=== PATIENT | female | born 1945 | race Caucasian/White ===

== ENCOUNTER 2017-10-03 15:30 | Emergency (ER) | payer MEDICARE, MEDICAID, SELFPAY ==
[2017-10-03] VITALS (12 sets, daily range): BP systolic 151–169; BP diastolic 86–104; PULSE 59–76; RESP 16–29; TEMP 36.5; O2SAT 94–100
--- NOTE | 2017-10-03 15:44 | DI.REPORT_ITS ---
SYMPTOM/DIAGNOSIS: EPIGASTRIC PAIN, SYNCOPAL EPISODES, R/O ACUTE DISEASE PA AND LATERAL CHEST: Comparison is made with 28 Jan 2017. The heart size is normal. The lungs are clear. No infiltrate, effusion or pulmonary edema is seen. IMPRESSION: Negative chest x-ray.
--- NOTE | 2017-10-03 16:14 | ED.GENADUL ---
Disposition Clinical Impression: UTI (urinary tract infection), Vaginal atrophy Disposition: HOME Condition: Stable Instructions: Estradiol (Vaginal), Urinary Tract Infection in Women (ED) Additional Instructions: Take the antibiotics until finished. Use the estrogen cream as directed. Call your primary care doctor on Friday morning to schedule follow-up appointment for reevaluation of your chronic urinary tract infections and vaginal atrophy and for further direction on whether or not to continue the estrogen cream as that can have side effects. You should receive a call from care management regarding follow-up with urology regarding your chronic urinary tract infections. Prescriptions: Estradiol [Estrace] 1 gm VG DAILY 14 Days #1 tube Nitrofurantoin Monohyd/M-Cryst [Macrobid] 100 mg PO BID 5 Days cap Medical Decision Making - Lab Data Laboratory Tests 10/03/17 10/03/17 10/03/17 16:00 16:00 16:00 WBC 9.87 RBC 4.90 Hgb 13.9 Hct 42.6 MCV 86.9 MCH 28.4 MCHC 32.6 RDW 16.0 H Plt Count 243 MPV 10.4 Immature Gran % 0.2 Neutrophils % 66.9 Lymphocytes % 24.8 Monocytes % 5.9 Eosinophils % 2.0 Basophils % 0.2 Absolute Neutrophils 6.60 Absolute Lymphocytes 2.45 Absolute Monocytes 0.58 Absolute Eosinophils 0.20 Absolute Basophils 0.02 Sodium 139 Potassium 3.8 Chloride 101 Carbon Dioxide 28.8 Anion Gap 9.2 BUN 9 Creatinine 0.71 Estimated GFR/1.73 m2 >= 60.00 Glucose 87 Calcium 9.2 Magnesium 1.8 Total Bilirubin 0.3 0.3 Conjugated Bilirubin 0.10 AST 15 15 ALT 18 18 Alkaline Phosphatase 87 89 Troponin I < 0.02 Total Protein 7.3 7.4 Albumin 3.8 3.8 Lipase 121 Urine Color Urine Clarity Urine pH Ur Specific [place] Urine Protein Urine Ketones Urine Blood Urine Nitrite Urine Bilirubin Urine Urobilinogen Ur Leukocyte Esterase Urine RBC Urine WBC Ur Epithelial Cells Urine Crystals Urine Bacteria Urine Casts Urine Mucus Urine Other Ur Culture Indicated? Urine Glucose 10/03/17 16:00 WBC RBC Hgb Hct MCV MCH MCHC RDW Plt Count MPV Immature Gran % Neutrophils % Lymphocytes % Monocytes % Eosinophils % Basophils % Absolute Neutrophils Absolute Lymphocytes Absolute Monocytes Absolute Eosinophils Absolute Basophils Sodium Potassium Chloride Carbon Dioxide Anion Gap BUN Creatinine Estimated GFR/1.73 m2 Glucose Calcium Magnesium Total Bilirubin Conjugated Bilirubin AST ALT Alkaline Phosphatase Troponin I Total Protein Albumin Lipase Urine Color Yellow Urine Clarity Sl cloudy Urine pH 7.0 Ur Specific [place] 1.015 Urine Protein Negative Urine Ketones Negative Urine Blood Moderate H Urine Nitrite Negative Urine Bilirubin Negative Urine Urobilinogen 0.2 Ur Leukocyte Esterase Trace H Urine RBC >50 H Urine WBC 20-50 Ur Epithelial Cells Few Urine Crystals Negative Urine Bacteria Rare Urine Casts Negative Urine Mucus Negative Urine Other Rare renal Ur Culture Indicated? Yes Urine Glucose Negative - EKG Data -: EKG Interpreted by Me 10/03/17 1546: [address]. No acute ST elevation or depression. - Radiology Data Radiology results: report reviewed, image reviewed Chest x-ray: Negative - Medical Decision Making 1540 -- 71-year-old female with a history of chronic urinary tract infections, GERD, and hysterectomy who presents for urinary symptoms for 3 days and feeling weak at PCP office today. Patient has dysuria, frequency and hematuria. She denies fever, vomiting or back pain. She was at [facility] for her urinary symptoms today and felt weak while walking to the bathroom. She states she has not eaten anything today. There was no syncopal episode, headache, dizziness, chest pain, shortness of breath or palpitations at the time of feeling weak. EMS notes that patient had a temp of 104 in one ear and 97 and another ear and EMS states they think their thermometer is not accurate and she does not have a fever. Temp on arrival 97.7. Patient appears nontoxic. She is complaining of lower abdominal pain and she has to urinate. She also complained of mild epigastric pain and was mildly tender in her epigastric region and lower abdomen which may be due to not eating. No CVA tenderness. No focal deficits. Due to complaints of near syncope and epigastric pain, will place an IV, pepcid, bolus IVF, cardiac workup, EKG, chest x-ray and urinalysis. 1630 -- ua and imaging reviewed. Urinalysis notes significant UTI. Dose of rocephin ordered. Urine culture sent. Chest x-ray negative. Pt is requesting food as she has not eaten all day. Will order tray of food. EKG noted rate of 60, sinus and no acute ST findings. 1700 --labs reviewed and unremarkable. Pt states she feels much better after eating. She appears nontoxic and pleasant and much more comfortable compared to arrival. Pt is requesting to go home. Pt had also admitted to area just inside vagina burning and itching at times. Area was examined and noted minimal erythema and tenderness with thinning of skin but no discharge, lesions or bleeding. Pt states she has had this for months. It's possible that her urine is causing local irritation contributing to dysuria feeling in addition to UTI. I d/w pt that her symptoms/signs can be due to vaginal atrophy from post-menopausal state. We discussed the possibilities of treatment and their risks. Pt would like a prescription for vaginal cream. Will send home with estrace vaginal cream. Pt also has recently been treated for UTI with keflex in June 2017 and cipro in July 2017. Will send home with script for macrobid. Pt was instructed on the importance of f/u with her pcp for reevaluation, urine culture results, and further discussion about possible vaginal atrophy and whether to continue estrace cream. Pt was instructed to return immediately with any concerns. Will also place pt on care management list for follow up with urology for evaluation for chronic UTIs. History of Present Illness - General Chief complaint: GenMedical Stated complaint: CALEX Time Seen by Provider: 10/03/17 15:35 Source: patient Mode of arrival: EMS Limitations: no limitations - History of Present Illness Initial comments: Patient is a 71-year-old female with a history of chronic urinary tract infections, hypertension, hyperlipidemia and hysterectomy who presents to the ED with a complaint of urinary symptoms for 3 days and feeling weak at the PCP office today. Patient admits to dysuria, frequency and hematuria. Patient has history of chronic urinary tract infections. Patient was at [facility] today for her urinary symptoms and was walking to the bathroom and felt weak. She denies any syncopal episode, headache, dizziness, chest pain, shortness of breath, palpitations, nausea, or vomiting at that time. - Related Data Albuterol [Proventil Hfa] 2 puff IH PRN 11/14/13 Aspirin [Aspir 81] 81 mg PO DAILY 11/14/13 Losartan/Hydrochlorothiazide [Losartan-Hctz 100-25 mg Tab] 1 tab PO DAILY 11/14/13 Lovastatin 20 mg PO DAILY 11/14/13 Venlafaxine [Effexor] 75 mg PO DAILY 09/28/14 Melatonin 3 mg PO HS 05/20/16 Omeprazole 20 mg PO DAILY tab-cap 05/20/16 Beclomethasone Dipropionate [Qvar 40Mcg] 2 puff IH BID 01/28/17 Prednisone 10 mg PO DIRECTED #14 tablet 01/30/17 Cephalexin [Keflex] 500 mg PO BID #13 cap 07/12/17 Phenazopyridine HCl [Pyridium] 100 mg PO Q8H #4 tablet 07/12/17 Estradiol [Estrace] 1 gm VG DAILY 14 Days #1 tube 10/03/17 Nitrofurantoin Monohyd/M-Cryst [Macrobid] 100 mg PO BID 5 Days cap 10/03/17 Allergies Allergy/AdvReac Type Severity Reaction Status Date / Time Iodinated Contrast- Oral and Allergy Itching Unverified 07/12/17 13:03 IV Dye aspirin AdvReac Nausea Unverified 07/12/17 13:03 nicotine [From Nicoderm CQ] AdvReac Itching Unverified 07/12/17 13:03 Review of Systems Constitutional: denies: chills, fever Eyes: denies: eye pain ENT: denies: ear pain, dental pain Respiratory: denies: cough, shortness of breath Cardiovascular: denies: chest pain, dyspnea on exertion Gastrointestinal: denies: abdominal pain, nausea, vomiting Genitourinary: frequency, hematuria. denies: dysuria Musculoskeletal: denies: back pain Skin: denies: rash, lesions Neurological: denies: headache, weakness, numbness Past Medical History - Past Medical History Medical history: COPD, GERD, hyperlipidemia, hypertension Surgical history: appendectomy, cholecystectomy, hysterectomy, other (Cataract surgery) Family history: CAD/WA, cancer, hypertension - Social History Smoking status: current everyday smoker Alcohol use: none Drug use: none General Exam - General Limitations: no limitations General appearance: alert, in no apparent distress - Eye Eye exam: Present: EOMI - ENT ENT exam: Present: normal orophraynx - Neck Neck exam: Present: normal inspection - Respiratory Respiratory exam: Present: normal lung sounds bilaterally, chest wall tenderness - Cardiovascular Cardiovascular Exam: Present: regular rate, normal rhythm. Absent: bradycardia, tachycardia - GI/Abdominal GI/Abdominal exam: Present: soft, normal bowel sounds. Absent: distended, tenderness, guarding, rebound, rigid - Back Exam Back exam: Absent: CVA tenderness (R), CVA tenderness (L) - Neurological Exam Neurological exam: Present: alert, oriented X3 - Psychiatric Psychiatric exam: Present: normal affect - Skin Skin exam: Present: warm, dry, intact. Absent: rash Course Vital Signs - 24 hr 10/03/17 15:40 Temperature 97.7 F Pulse 64 Respiratory 22 Rate Blood Pressure 153/104 Pulse Oximetry 97
[2017-10-03 16:16] LABS: Bilirubin Negative (Negative); Blood Moderate (Negative); Clarity Sl Cloudy; Glucose Negative (Negative); Ketones Negative (Negative); Leukocyte Esterase Trace (Negative); Nitrite Negative (Negative); Specific Gravity 1.015 (1.005-1.025); Urobilinogen 0.2 EU/dL (Up TO 0.2)
[2017-10-03 16:22] LABS: Abs Immature Grans 0.02 k/cumm (0.0-0.09); Absolute Basophil Count 0.02 k/cumm (0.0-0.2); Absolute Lymphocyte Count 2.45 k/cumm (1.2-3.4); Absolute Monocyte Count 0.58 k/cumm (0.11-0.7); Basophils % 0.2; HCT 42.6 % (36.0-46.0); HGB 13.9 g/dL (12.0-15.5); Immature Grans % 0.2; Lymphocytes % 24.8; Mean Corp. HGB Concentration 32.6 g/dL (32.0-36.0); Mean Corpuscular Hemoglobin 28.4 pg (27.0-33.0); Mean Corpuscular Volume 86.9 fL (80-95); Mean Platelet Volume 10.4 fL (8.0-11.0); Monocytes % 5.9; Neutrophils % 66.9; Platelet Count 243 x1000/uL (130-400); White Blood Cell Count 9.87 k/cumm (4.4-10.8)
[2017-10-03 16:26] LABS: Bacteria Rare HPF (Negative); C & S Indicated? Yes; Casts Negative LPF (Negative); Crystals Negative HPF (Negative); Epithelial Cells Few HPF (Negative); Mucus Negative (Negative); Other Cells Rare Renal (Negative); RBC >50 (0-2); WBC 20-50 HPF (0-5)
[2017-10-03 16:37] LABS: ALT 18 U/L (12-78); AST 15 U/L (15-37); Albumin 3.8 g/dL (3.4-5.0); Alkaline Phosphatase 89 U/L (46-116); Bilirubin, Total 0.3 mg/dL (0.2-1.0); Lipase 121 U/L (73-393); Total Protein 7.4 g/dL (6.4-8.2)
[2017-10-03 16:39] LABS: ALT 18 U/L (12-78); AST 15 U/L (15-37); Albumin 3.8 g/dL (3.4-5.0); Alkaline Phosphatase 87 U/L (46-116); Anion Gap 9.2 mmol/L (3-11); BUN 9 mg/dL (7-18); Bilirubin, Total 0.3 mg/dL (0.2-1.0); CO2 28.8 mmol/L (21.0-32.0); CREATININE 0.71 mg/dL (0.55-1.02); Calcium 9.2 mg/dL (8.5-10.1); Chloride 101 mmol/L (98-107); Glucose 87 mg/dL (70-100); Magnesium 1.8 mg/dL (1.8-2.4); Potassium 3.8 mmol/L (3.5-5.1); Sodium 139 mmol/L (136-145); Total Protein 7.3 g/dL (6.4-8.2)
--- NOTE | 2017-10-03 16:42 | DI.VRAD_ITS ---
EXAM: XR Chest, 2 Views CLINICAL HISTORY: 71 years old, female; Signs and symptoms; Shortness of breath TECHNIQUE: Frontal and lateral views of the chest. COMPARISON: CR - CHEST 2 VIEWS PA,LAT 2017-01-28 11:12 FINDINGS: Lungs: COPD. No pulmonary consolidation. Pleural space: Unremarkable. No pneumothorax. Heart: Unremarkable. No cardiomegaly. Mediastinum: Unremarkable. Bones/joints: Degenerative spondylosis of the thoracic spine. Upper abdomen: Status post cholecystectomy. IMPRESSION: No acute findings. Dictated and Authenticated by: Isaiah Prabhakar MD. Ordering:ANGELO RAMOS MD
[2017-10-03 16:51] LABS: Troponin I < 0.02 ng/mL (0.00-0.06)
[2017-10-03] MEDS: Normal Saline 250 ML IV (16:53)
[2017-10-03] MEDS: FAMOTIDINE 20 MG/50 ML BAG 100 MG IVPB (16:54)
[2017-10-03] MEDS: MacroBID 100 MG CAP 200 MG PO (17:45)
--- NOTE | 2017-10-06 08:04 | PDOC.ERCMPRO ---
Care Management Progress Note 10/06-Dr. Bass requested assistance with an urology f/u within 1-2 weeks for chronic UTI. Referral faxed to urology this am.
== END 2017-10-03 17:58 | disposition home or self-care (01) ==
PROVIDERS: Emergency Provider Physician Assistant
DX: N39.0 Urinary tract infection, site not specified (principal); B96.89 Other specified bacterial agents as the cause of diseases classified elsewhere; N95.2 Postmenopausal atrophic vaginitis; R55 Syncope and collapse; I10 Essential (primary) hypertension; J44.9 Chronic obstructive pulmonary disease, unspecified; F17.210 Nicotine dependence, cigarettes, uncomplicated
CPT/HCPCS: 71046; 93005; 96361; 96365; 96368; 99285 ×2; J0696; 80053; 80076; 83690; 81003; 81015; 83735; 84484; 85025; 87086; 93010

== ENCOUNTER 2017-12-31 01:10 | Outpatient (CLI) | payer MEDICARE, MEDICAID, SELFPAY ==
--- NOTE | 2017-12-31 14:08 | DI.RAD_ITS ---
SYMPTOMS/DIAGNOSIS: RT WRIST PAIN, M25.531 RIGHT WRIST: Three views were obtained. The carpal alignment appears within normal limits. There are mild degenerative changes of the joints of the carpus, most prominent at the greater multangular first metacarpal joint. No other significant bony abnormality is seen.
== END 2017-12-31 01:30 ==
PROVIDERS: PCP Family Medicine; Visit Provider Family Medicine
DX: M25.531 Pain in right wrist (principal); M19.031 Primary osteoarthritis, right wrist
CPT/HCPCS: 73110

== ENCOUNTER 2018-05-12 13:34 | Emergency (ER) | payer MEDICARE, MEDICAID, SELFPAY ==
[2018-05-12 13:40] VITALS: BP 191/91; PULSE 65; RESP 20; TEMP 36.8; O2SAT 98
--- NOTE | 2018-05-12 13:59 | ED.GENADUL_ITS ---
Discharge Plan Disposition Patient Disposition: HOME Condition: Good Discharge Details Chief Complaint: RespSymp Clinical Impression: COPD (chronic obstructive pulmonary disease), URI (upper respiratory infection) Primary Care Provider: Trixie Devine ED Provider: Reed Louis Paterson Meds and New Rx's Prescriptions: New prednisone 20 mg tablet 40 mg PO DAILY Qty: 6 RF: 0 Continued omeprazole 10 MG capsule,delayed release(DR/EC) 20 mg PO DAILY RF: 0 melatonin 3 MG tablet,disintegrating 3 mg PO HS RF: 0 aspirin [Aspir-81] 81 MG tablet,delayed release (DR/EC) 81 mg PO DAILY RF: 0 losartan-hydrochlorothiazide 1 EACH tablet 1 tab PO DAILY RF: 0 venlafaxine 37.5 MG tablet 75 mg PO DAILY RF: 0 lovastatin 20 MG tablet 20 mg PO DAILY RF: 0 Qvar 120 PUFF aerosol 2 puff Inhalation BID RF: 0 Changed albuterol sulfate [Proventil HFA] 1 PUFF HFA aerosol inhaler 2 puff Inhalation Q4H PRN (Reason: Wheezing) Qty: 0 RF: 0 Discharge Instructions Instructions: Upper Respiratory Infection (ED), COPD (Chronic Obstructive Pulmonary Disease) (ED) Additional Instructions: Your flu swab is negative. Your chest x-ray is negative. You have a little bit of wheezing with a history of lung disease and a URI. Please use your albuterol inhaler every 4-6 hours to help with your breathing. Take prednisone for the next 3 days. Please make a follow-up appointment with your doctor early next week. Please drink plenty fluids to stay hydrated. Return to ED for increasing difficulty breathing, chest pain, mental status change, high fevers, other concerns. Referrals: Trixie Devine [Primary Care Provider] - Medical Decision Making Patient feeling weak and lightheaded with associated respiratory symptoms. No fever that has been documented. Does continue to smoke. Has some scattered wheezes but no focal findings. We will place an IV to give her liter of fluid. Will obtain flu swab and chest x-ray. Patient flu swab is negative. Chest x-ray shows no infiltrate. She does feel better after fluid resuscitation. Only some scattered wheezes. She has only been using her rescue inhaler twice a day. We will have her use every 4-6 hours as needed for wheezing and cough. Will burst with prednisone for 4 days. No antibiotic at this point as I think this is all viral. Follow-up with primary care next week to reevaluate. Return to ED for fever, increasing shortness of breath, chest pain, other concerns. HPI General Mode of arrival: ambulatory . Date/Time Provider Initiated Documentation: 05/12/18 13:56 . Limitations to Documentation: no limitations . Information obtained by: patient . HPI Narrative: Patient presents to ED with complaints of nasal and sinus congestion, cough, not feeling well. She feels very weak and rundown. She feels lightheaded today. She was unable to get in to see her primary care and came here for evaluation. She has been using her inhalers. She occasionally feels short of breath although not consistently. She does continue to smoke. She has not had fever that she is aware of. She has no chest pain or pressure. Related Data Home Medications Medication Instructions Recorded Confirmed aspirin [Aspir-81] 81 mg PO DAILY 11/14/13 05/12/18 losartan-hydrochlorothiazide 1 tab PO DAILY 11/14/13 05/12/18 lovastatin 20 mg PO DAILY 11/14/13 05/12/18 venlafaxine 75 mg PO DAILY 11/14/13 05/12/18 melatonin 3 mg PO HS 05/20/16 05/12/18 omeprazole 20 mg PO DAILY tab-cap 05/20/16 05/12/18 Qvar 2 puff INHALATION BID 01/28/17 05/12/18 albuterol sulfate [Proventil HFA] 2 puff INHALATION Q4H PRN #0 g 05/12/18 05/12/18 prednisone 40 mg PO DAILY #6 tab 05/12/18 Previous Rx's Medication Instructions Recorded albuterol sulfate [Proventil HFA] 2 puff INHALATION Q4H PRN #0 g 05/12/18 prednisone 40 mg PO DAILY #6 tab 05/12/18 Allergies Allergy/AdvReac Type Severity Reaction Status Date / Time Iodinated Contrast- Oral and Allergy Itching Unverified 05/12/18 13:42 IV Dye aspirin AdvReac Nausea Unverified 05/12/18 13:42 nicotine [From Nicoderm CQ] AdvReac Itching Unverified 05/12/18 13:42 General Stated Complaint: RespSymp LOUISA: 3 Review of Systems Constitutional Denies chills, Denies fever(s), Denies headache(s), Reports malaise, Reports poor appetite and Reports weakness Eyes Denies eye discharge and Denies eye pain ENT Denies otalgia, Denies headache(s), Reports nasal congestion, Denies neck pain, Reports post nasal drip, Reports sinus pressure and Denies sore throat Cardiovascular Denies chest pain, Denies syncope, Denies edema, Reports lightheadedness and Reports dyspnea (intermittent) Respiratory Denies chest congestion, Reports cough and Reports dyspnea (intermittent) Gastrointestinal Denies abdominal pain, Denies nausea and Denies vomiting Musculoskeletal Denies back pain, Denies neck pain and Denies numbness Integumentary/Breasts Denies rash Neurologic Denies syncope, Denies headache(s), Denies focal weakness, Denies numbness and Reports weakness PFSH Medical History COPD with acute exacerbation (Chronic) GERD (gastroesophageal reflux disease) (Chronic) HTN (hypertension) (Chronic) Hypercholesterolemia (Chronic) Surgical History Cholecystectomy (Inactive) Colonoscopy - MAC (Inactive 06/14/16) Vaginal hysterectomy (Inactive) Family History Father Colon cancer Social History Smoking/Tobacco Use Status: Current every day Tobacco Type: cigarettes Alcohol Intake: never Drug use: Never Substance use type: does not use Do you feel safe at home: Yes Do you feel safe in your relationship?: Yes Exam Const General: cooperative and no acute distress Orientation: alert and oriented x3 HENWV Head: normocephalic and atraumatic Ears: TM's normal bilaterally General nose exam: no nasal discharge Face and sinus: sinuses nontender and face symmetric Mouth: moist mucous membranes Throat: posterior oropharynx abnormal cobblestoning; no edema, no erythema and no exudates Eyes Conjunctivae: conjunctivae normal Neck Neck: trachea midline and supple Resp Effort & Inspection: normal respiratory effort Auscultation: no rales, no rhonchi and wheezes scattered wheezes Neuro General: alert, oriented x3, no focal motor deficits and CN's II-XI intact bilaterally Sensory Exam: no sensory deficits noted Extrem General: no clubbing, cyanosis or edema Course Vital Signs Temperature 98.2 F 05/12/18 13:40 Pulse 65 05/12/18 13:40 Respiratory Rate 20 05/12/18 13:40 Blood Pressure 191/91 H 05/12/18 13:40 Pulse Oximetry 98 05/12/18 13:40 Temperature 98.2 F 05/12/18 13:40 Temperature Source Temporal Artery Scan 05/12/18 13:40 Pulse 65 05/12/18 13:40 Respiratory Rate 20 05/12/18 13:40 Respiratory Effort Non-Labored 05/12/18 13:40 Blood Pressure 191/91 H 05/12/18 13:40 Blood Pressure Position Sitting 05/12/18 13:40 Pulse Oximetry 98 05/12/18 13:40 Oxygen Delivery Method Room Air 05/12/18 13:40 Oxygen Flow Rate 0 05/12/18 13:40
--- NOTE | 2018-05-12 15:07 | NUR.NOTE ---
Escort to Radiology for xray by RN and ZOILA via wheelchair. Patient indicates unsteadiness with standing; changed out wheelchair for stretcher.Nursing Note:
--- NOTE | 2018-05-12 15:20 | DI.RAD_ITS ---
SYMPTOMS/DIAGNOSIS: COUGH, CONGESTION PA AND LATERAL CHEST: The heart is not enlarged. No pleural effusions seen. The lungs appear grossly clear. No mediastinal contour abnormality seen. CONCLUSION: No evidence of acute disease.
[2018-05-12] MEDS: Lactated Ringers 1,000 ML 1000 ML IV (15:21)
[2018-05-12] MEDS: Normal Saline Flush 10 ML SYR IVP (15:25)
[2018-05-12] MEDS: predniSONE 20 MG TAB 60 MG PO (16:24)
== END 2018-05-12 16:40 | disposition home or self-care (01) ==
PROVIDERS: Emergency Provider Emergency Medicine; PCP Family Medicine
DX: J44.9 Chronic obstructive pulmonary disease, unspecified (principal); J06.9 Acute upper respiratory infection, unspecified; I10 Essential (primary) hypertension; F17.210 Nicotine dependence, cigarettes, uncomplicated
CPT/HCPCS: 87449; 96360; 99283; 71046; J7512

== ENCOUNTER 2018-11-16 12:14 | Outpatient (REF) | payer MEDICARE, MEDICAID, SELFPAY ==
[2018-11-16 21:22] LABS: ALT 22 U/L (14-59); AST 15 U/L (15-37); Albumin 3.7 g/dL (3.4-5.0); Alkaline Phosphatase 85 U/L (46-116); Anion Gap 10.8 mmol/L (3-11); BUN 12 mg/dL (7-18); Bilirubin, Total 0.3 mg/dL (0.2-1.0); CO2 29.2 mmol/L (21.0-32.0); CREATININE 0.83 mg/dL (0.55-1.02); Calcium 9.1 mg/dL (8.5-10.1); Chloride 102 mmol/L (98-107); Glucose 90 mg/dL (70-100); Potassium 3.6 mmol/L (3.5-5.1); Sodium 142 mmol/L (136-145); Total Protein 6.6 g/dL (6.4-8.2)
== END 2018-11-16 12:34 ==
LOC: NCHCN 12:14
PROVIDERS: PCP Family Medicine; Visit Provider Nurse Practitioner Family
DX: I10 Essential (primary) hypertension (principal); R10.32 Left lower quadrant pain; Z87.442 Personal history of urinary calculi
CPT/HCPCS: 80053

== ENCOUNTER 2018-11-20 00:20 | Outpatient (CLI) | payer MEDICARE, MEDICAID, SELFPAY ==
--- NOTE | 2018-11-20 15:00 | DI.US_ITS ---
EXAM: US RENAL CLINICAL HISTORY: RENAL AND BLADDER, LT FLANK PAIN R10.9, HX KIDNEY STONE Z87.442. TECHNIQUE: Ultrasound performed using standard protocol. COMPARISON: RENAL ULTRASOUND(P) from 08/04/2017 FINDINGS: The right kidney measures 9.8 x 3.7 x 4.3 cm. The left kidney measures 9.8 x 4.3 x 4.2 cm. Non-obstr ucting left nephrolithiasis is demonstrated and upper pole up calcification measures 3.2 millimeters. A lower pole calcification measures 3.4 millimeters. Prevoid bladder volume is 24.3 cc. Postvoid bl adder volume is 0. The bladder was nondistended and could not be adequately evaluated. IMPRESSION: Findings consistent with multiple small non-obstructing left renal calculi.
== END 2018-11-20 00:40 ==
PROVIDERS: PCP Family Medicine; Visit Provider Nurse Practitioner Family
DX: R10.32 Left lower quadrant pain (principal); N20.0 Calculus of kidney; Z87.442 Personal history of urinary calculi
CPT/HCPCS: 76770

== ENCOUNTER 2019-03-08 16:11 | Outpatient (REF) | payer MEDICARE, MEDICAID, SELFPAY | END 2019-03-08 16:31 | LOC: NCHCN 16:11 | PROVIDERS: PCP Family Medicine; Visit Provider Nurse Practitioner Family | DX: N39.0 Urinary tract infection, site not specified (principal); I10 Essential (primary) hypertension; R73.03 Prediabetes | CPT/HCPCS: 87086 ==

== ENCOUNTER 2019-03-15 14:20 | Outpatient (REF) | payer MEDICARE, MEDICAID, SELFPAY ==
--- NOTE | 2019-03-15 13:40 | LABIA_PTH ---
PATIENT: Candis Davalos LOC: [facility] U#:[id number] AGE/SX: 73/F ROOM: RE03/15/[address]: Columba Soto NP : 1945 BED: DIS: 03/15/2019 SPEC #: [id number] RECD: 03/15/19 17:39 STATUS: PATI RERodney #: [id number] JESUS: 03/15/19 13:[address]: Columba Soto NP DEPT: Surgical Specimen RECD BY: Corinne Macias ENTERED: 03/15/19 17:40 SP TYPE: LABIA OTHR DR: Trixie Devine Tissues: 1 - LABIA BX 2 - LABIA BX Procedures: GROSS AND MICRO LEVEL 4 Comments: [id number]
== END 2019-03-15 14:40 ==
LOC: LBN 14:20
PROVIDERS: PCP Family Medicine; Visit Provider Nurse Practitioner Women's Health
DX: D07.1 Carcinoma in situ of vulva (principal); N90.3 Dysplasia of vulva, unspecified
CPT/HCPCS: 88305

== ENCOUNTER 2019-04-06 16:19 | Outpatient (REF) | payer MEDICARE, MEDICAID, SELFPAY ==
[2019-04-06 22:36] LABS: Anion Gap 9.1 mmol/L (3-11); BUN 16 mg/dL (7-18); CO2 29.9 mmol/L (21.0-32.0); CREATININE 0.76 mg/dL (0.55-1.02); Chloride 103 mmol/L (98-107); Glucose 130 mg/dL (74-106); Sodium 142 mmol/L (136-145); TSH (W/Ref FT4) 1.75 uIU/mL (0.36-3.74); Vitamin B12 388 pg/mL (193-986)
[2019-04-08 05:03] LABS: Vitamin D 25 Total 14.6 ng/ml (30-100)
== END 2019-04-06 16:39 ==
LOC: NCHCN 16:19
PROVIDERS: PCP Family Medicine; Visit Provider Nurse Practitioner Family
DX: I10 Essential (primary) hypertension (principal); E55.9 Vitamin D deficiency, unspecified; M25.50 Pain in unspecified joint; M79.605 Pain in left leg; R73.03 Prediabetes; F32.9 Major depressive disorder, single episode, unspecified
CPT/HCPCS: 80048; 82306; 82607; 84443

== ENCOUNTER 2019-04-14 13:03 | Outpatient (CLI) | payer MEDICARE, MEDICAID, SELFPAY ==
[2019-04-14 13:37] LABS: Absolute Basophil Count 0.03 k/cumm (0.0-0.2); Absolute Eosinophil Count 0.21 k/cumm (0.0-0.7); Absolute Lymphocyte Count 2.42 k/cumm (1.2-3.4); Absolute Monocyte Count 0.61 k/cumm (0.11-0.7); Basophils % 0.4; Eosinophils % 2.7; HCT 39.4 % (36.0-46.0); HGB 12.9 g/dL (12.0-15.5); Lymphocytes % 31.6; Mean Corp. HGB Concentration 32.7 g/dL (32.0-36.0); Mean Corpuscular Hemoglobin 27.9 pg (27.0-33.0); Mean Corpuscular Volume 85.1 fL (80-95); Mean Platelet Volume 10.5 fL (8.0-11.0); Neutrophils % 57.3; Platelet Count 305 x1000/uL (130-400); RBC 4.63 m/cumm (4.00-5.20); RBC Distribution Width 15.6 % (11.7-14.6); White Blood Cell Count 7.67 k/cumm (4.4-10.8)
== END 2019-04-14 13:23 ==
PROVIDERS: PCP Nurse Practitioner Family; Visit Provider Obstetrics & Gynecology
DX: N90.89 Other specified noninflammatory disorders of vulva and perineum (principal); Z01.812 Encounter for preprocedural laboratory examination
CPT/HCPCS: 36415; 86850; 86900; 86901; 85025

== ENCOUNTER 2019-04-15 08:35 | Day surgery (SDC) | payer MEDICARE, MEDICAID, SELFPAY ==
[2019-04-15 08:35] VITALS: BP 152/74; PULSE 68; RESP 18; TEMP 36.6; O2SAT 95
[2019-04-15] MEDS: Lactated Ringers 1,000 ML 125 ML IV (09:13)
--- NOTE | 2019-04-15 11:06 | VUL_PTH ---
PATIENT: Candis Davalos LOC: [facility] U#:[id number] AGE/SX: 73/F ROOM: RE04/15/[address]: Jacob Fierro MD : 1945 BED: DIS: 04/15/2019 SPEC #: [id number] RECD: 04/15/19 12:58 STATUS: PATI REQ #: [id number] JESUS: 04/15/19 11:[address]: Jacob Fierro DEPT: Surgical Specimen RECD BY: Corinne Macias ENTERED: 04/15/19 13:00 SP TYPE: VUL OTHR DR: Mitzi Parham Tissues: 1 - VULVA BIOPSY 2 - LABIA BX Procedures: GROSS AND MICRO LEVEL 4 GROSS AND MICRO LEVEL 6 Comments: [id number]
[2019-04-15] MEDS: Bupivacaine 0.5% Pres-Free 30 ML VIAL (11:17)
[2019-04-15 11:50] VITALS: BP 127/73; PULSE 62; RESP 16; TEMP 36.3; O2SAT 92
--- NOTE | 2019-04-16 07:50 | W.PM.OP ---
Date of service: 04/15/19 Time of Service: 11:30 Operative Note Operative Note DATE OF PROCEDURE: 04/15/19 PRE-OP DIAGNOSIS: REYNA III POST-OP DIAGNOSIS: same PROCEDURE: Wide local excision of vulvar lesions x2 SURGEON: Jacob Fierro ANESTHESIA: MAC and local ESTIMATED BLOOD LOSS: 10 PATHOLOGY: other (1. Lesion from introitus 2. Left labial lesion) COMPLICATIONS: None Patient was transported to: PACU Patient's condition: stable Findings: 1. Vulvar colposcopy was performed showing acetowhite changes at the introitus and a raised lesion on the inner aspect of the left labia. Procedure Description: Initially after adequate sedation was achieved vulva was prepped with gauze soaked in dilute acetic acid solution. The colposcope was brought into position and vulvar colposcopy was performed. There were acetowhite changes at the introitus with the overall transverse length of the lesion to be 1 to 2 cm and the width of the lesion to be 1 cm. The skin was marked with a marking pen outlining a margin surrounding the lesion. The left labial lesion was immediately adjacent and superior. This measured 3 to 4 mm in greatest dimension. It was also outlined with a marking pen. The skin was prepped with a dilute Hibiclens solution due to a Betadine allergy. After infiltration with 1% lidocaine solution with epinephrine and 0.5% Marcaine solution, a wide excision was made around both lesions. The lesion from the introitus was marked at the 12 o'clock position with a single stitch of 0 Vicryl and submitted to pathology. The left labial lesion was not marked but submitted as a separate specimen. The left labial lesion was closed with interrupted vertical mattress sutures of 2-0 Vicryl. Because of the dimensions of the excision at the introitus, the wound was closed vertically while the initial excision was horizontal. This created the best cosmetic result and under the least amount of tension. This defect was closed with interrupted subcutaneous stitches of 2-0 Vicryl in a manner jo ann to a perineoplasty. The remainder of the vulvar exam was normal. Excellent hemostasis was noted. The procedure was concluded at this point. Sponge, lap and needle counts were correct at the conclusion of the procedure. The patient was transferred to PACU in stable condition.
== END 2019-04-15 12:10 | disposition home or self-care (01) ==
PROVIDERS: PCP Nurse Practitioner Family; Visit Provider Obstetrics & Gynecology
PROC: (CPT 56740; principal; 2019-04-15 10:00)
DX: D07.1 Carcinoma in situ of vulva (principal)
CPT/HCPCS: 11622; 12041; 88305; 88309; J1885; J2001; J2405

== ENCOUNTER 2019-08-02 16:34 | Outpatient (REF) | payer MEDICARE, MEDICAID, SELFPAY ==
--- NOTE | 2019-08-02 15:30 | VUL_PTH ---
PATIENT: Candis Davalos LOC: [facility] U#:[id number] AGE/SX: 73/F ROOM: RE08/02/[address]: Jacob iFerro MD : 1945 BED: DIS: 08/02/2019 SPEC #: [id number] RECD: 08/02/19 16:54 STATUS: PATI REQ #: [id number] JESUS: 08/02/19 15:[address]: Jacob Fierro DEPT: Surgical Specimen RECD BY: Corinne Macias ENTERED: 08/02/19 16:55 SP TYPE: VUL OTHR DR: Mitzi Parham Tissues: 1 - VULVA BIOPSY 2 - VULVA BIOPSY Procedures: GROSS AND MICRO LEVEL 4 Comments: [id number]
== END 2019-08-02 16:54 ==
LOC: LBN 16:34
PROVIDERS: PCP Nurse Practitioner Family; Visit Provider Obstetrics & Gynecology
DX: N90.1 Moderate vulvar dysplasia (principal); N76.2 Acute vulvitis
CPT/HCPCS: 88305

== ENCOUNTER 2019-10-27 15:25 | Outpatient (REF) | payer MEDICARE, MEDICAID, SELFPAY ==
--- NOTE | 2019-10-27 14:50 | VAG_PTH ---
PATIENT: Candis Davalos LOC: [facility] U#:[id number] AGE/SX: 73/F ROOM: RE10/27/[address]: Jacob Fierro MD : 1945 BED: DIS: 10/27/2019 SPEC #: [id number] RECD: 10/27/19 16:47 STATUS: PATI REQ #: [id number] JESUS: 10/27/19 14:[address]: Jacob Fierro DEPT: Surgical Specimen RECD BY: Kaylyn Orr ENTERED: 10/27/19 16:50 SP TYPE: VAG OTHR DR: Mitzi Parham Tissues: 1 - VAGINAL BIOPSY Procedures: GROSS AND MICRO LEVEL 4 IMMUNOPEROXIDASE STAIN P16 IPEX Comments: [id number]
== END 2019-10-27 15:45 ==
LOC: LBN 15:25
PROVIDERS: PCP Nurse Practitioner Family; Visit Provider Obstetrics & Gynecology
DX: R87.623 High grade squamous intraepithelial lesion on cytologic smear of vagina (HGSIL) (principal)
CPT/HCPCS: 88305; 88342; 88361

== ENCOUNTER 2020-11-21 14:55 | Outpatient (REF) | payer OTHER, MEDICAID, SELFPAY ==
[2020-11-23 11:28] LABS: COVID-19 RT-PCR UVMMC Result Negative (Negative)
== END 2020-11-21 14:56 | disposition home or self-care (01) ==
LOC: NCHCN 14:55
PROVIDERS: PCP Nurse Practitioner Family; Visit Provider Family Medicine
DX: Z20.822 Contact with and (suspected) exposure to COVID-19 (principal); J06.9 Acute upper respiratory infection, unspecified
CPT/HCPCS: U0003

== ENCOUNTER 2020-11-22 03:26 | Inpatient (IN) | payer OTHER, MEDICAID, SELFPAY ==
[2020-11-22] VITALS (33 sets, daily range): BP systolic 131–208; BP diastolic 61–176; PULSE 70–100; RESP 4–29; TEMP 36.3–37.1; O2SAT 88–100
--- NOTE | 2020-11-22 03:15 | RT.EKG_ITS ---
APPROVED REPORT Exam: Resting ECG Reason for Exam: sob Patient Location: E HR:88 bpm ECG Measurements Heart Rate 88 AXIS OH 145 P 75 QRSd 86 QRS 76 QT 382 T 58 QTc 463 Conclusion Sinus rhythm...normal P axis, V-rate 60- 99 Probable left atrial enlargement...P >50mS, <-0.10mV V1 Physician: no stemi,, q wave in lead III, inverted t wave in V1 and V2.
--- NOTE | 2020-11-22 03:15 | DI.RAD_ITS ---
Exam(s) XR PORTABLE CHEST AP EXAM: XR PORTABLE CHEST AP CLINICAL HISTORY: sob, cough, fever TECHNIQUE: 2D digital imaging was performed of the chest. One image was obtained. An AP view was ob tained. COMPARISON: CR XR CHEST 2V PA LATERAL from 05/12/2018 CR XR CHEST 2V PA LATERAL from 05/12/2018 FINDINGS: MEDIASTINUM: Normal. HEART: Normal. PULMONARY VASCULATURE: Normal. LUNGS: Clear. PLEURAL SPACE: No pleural effusion or pneumothorax. BONE:Within normal limits for the patient's age. OTHER FINDINGS:Normal. IMPRESSION: No acute pulmonary findings. DATA REPOSITORY: RADIATION DOSE DELIVERED:
--- NOTE | 2020-11-22 03:30 | ED.GENADUL_ITS ---
Discharge Plan Disposition Patient Disposition: [facility] INPATIENT Condition: Improving Discharge Details Chief Complaint: RespSymp Clinical Impression: COPD with acute exacerbation Primary Care Provider: Mitzi Parham ED Provider: Shahzad Alexis Home Meds and New Rx's Prescriptions: No Action omeprazole 10 MG capsule,delayed release(DR/EC) 20 mg PO DAILY RF: 0 melatonin 3 MG tablet,disintegrating 20 mg PO HS RF: 0 Advair HFA 115-21 mcg/actuation HFA aerosol inhaler 2 puff IH BID RF: 0 albuterol sulfate [ProAir HFA] 90 mcg/actuation HFA aerosol inhaler 2 puff IH Q6H PRNRF: 0 tizanidine 4 mg capsule 4 mg PO TID PRNRF: 0 amlodipine [Norvasc] 5 mg tablet 10 mg PO DAILY RF: 0 Advair HFA 230-21 mcg/actuation HFA aerosol inhaler 1 puff inhalation DAILY RF: 0 aspirin [Aspir-81] 81 MG tablet,delayed release (DR/EC) 81 mg PO DAILY RF: 0 losartan-hydrochlorothiazide 1 EACH tablet 1 tab PO DAILY RF: 0 lovastatin 20 MG tablet 20 mg PO DAILY RF: 0 Medical Decision Making 75-year-old female with a past medical history of asthma/COPD, high cholesterol, presents today for evaluation of shortness of breath. Patient states that for the last week she has had mild cough with increased chest tightness and difficulty breathing. She has an inhaler at home this has not been helping her symptoms. She states she did go to her primary care provider's office today and had scripts that were ordered, but she has not them up yet. She is uncertain as to what exactly medication treatments were. This evening she became notably more short of breath, and had difficulty breathing. EMS was called, patient was assessed and noted to be in the low 90s for oxygen saturation, she was given breathing treatments and 125 of Solu-Medrol, and brought into the ER for further management. Patient is vaccinated for Covid. She denies any tearing or ripping sensation in the chest. She denies any chest pain but does admit to chest tightness. She has no history of cardiac disease. No other complaints at this time. She does not smoke. She denies any other sick contacts. Exam demonstrates notable wheezes throughout, diminished breath sounds throughout, minimal intermittent crackle in the base. Notable labored respiratory effort. Symptoms at this time appear concerning and consistent with COPD exacerbation. We will get a portable chest x-ray to evaluate for pneumonia. Will give breathing treatments, supplemental oxygen as needed, monitor closely and reassess. 5:20 AM Patient's laboratory work-up has returned, no white count, bandemia or left shift. VBG is normal, electrolytes normal, renal function stable. Troponin normal. EKG shows inverted T waves in V1 and V2, Q waves in lead III, no other significant abnormalities. Chest x-ray negative for pneumonia. On reassessment patient states that she feels better, however she still does require mild oxygen supplementation. We did titrate her off oxygen, and she did drop back down to 89%. She is not normally on oxygen. We will bring her back to 2 L. We will continue giving additional breathing treatments that she still demonstrates moderate wheezes although she is subjectively claiming improvement. With the patient's isolated living status, her continued wheezes and need for supplemental oxygen I do feel that admission is indicated. I contacted the hospitalist Dr. Mcmillan, he agrees with the assessment and plan. I will place bridging orders on his behalf. I have extensively reviewed the treatment plan with the patient. I have addressed all patient concerns at this time. I have also discussed the plan with the admitting physician and they agree with the current assessment and plan and have agreed to assume responsibility for the patient. All parties demonstrate verbal understanding and agreement with our assessment and plan at this time. The documentation in this chart was dictated using [employer] dictation software. Please excuse any dictation errors. FINDINGS: Lungs: Mild chronic interstitial prominence. No consolidation. Pleural spaces: No pleural effusion. No pneumothorax. Heart/Mediastinum: No cardiomegaly. Bones/joints: Grossly stable. IMPRESSION: No acute findings. No radiographic evidence for pneumonia Thank you for allowing us to participate in the care of your patient. Dictated and Authenticated by: Carlos Garcia MD 11/22/2020 4:58 AM Eastern Time ([place] & Echo) HPI General Date/Time Provider Initiated Documentation: 11/22/20 03:28 . HPI Narrative: 75-year-old female with a past medical history of asthma/COPD, high cholesterol, presents today for evaluation of shortness of breath. Patient states that for the last week she has had mild cough with increased chest tightness and difficulty breathing. She has an inhaler at home this has not been helping her symptoms. She states she did go to her primary care provider's office today and had scripts that were ordered, but she has not them up yet. She is uncertain as to what exactly medication treatments were. This evening she became notably more short of breath, and had difficulty breathing. EMS was called, patient was assessed and noted to be in the low 90s for oxygen saturation, she was given breathing treatments and 125 of Solu-Medrol, and brought into the ER for further management. Patient is vaccinated for Covid. She denies any tearing or ripping sensation in the chest. She denies any chest pain but does admit to chest tightness. She has no history of cardiac disease. No other complaints at this time. She does not smoke. She denies any other sick contacts. Related Data Home Medications Medication Instructions Recorded Confirmed aspirin [Aspir-81] 81 mg PO DAILY 11/14/13 11/22/20 losartan-hydrochlorothiazide 1 tab PO DAILY 11/14/13 11/22/20 lovastatin 20 mg PO DAILY 11/14/13 11/22/20 melatonin 20 mg PO HS 05/20/16 11/22/20 omeprazole 20 mg PO DAILY tab-cap 05/20/16 11/22/20 albuterol sulfate 90 mcg/actuation 2 puff IH Q6H PRN 02/15/19 11/22/20 aerosol inhaler amlodipine 5 mg tablet 10 mg PO DAILY tab 02/15/19 11/22/20 fluticasone propionate 115 2 puff IH BID 02/15/19 11/22/20 mcg-salmeterol 21 mcg/actuation HFA inhaler tizanidine 4 mg capsule 4 mg PO TID PRN 02/15/19 11/22/20 fluticasone propionate 230 1 puff INHALATION DAILY g 09/22/20 11/22/20 mcg-salmeterol 21 mcg/actuation HFA inhaler Allergies Allergy/AdvReac Type Severity Reaction Status Date / Time nitrofurantoin Allergy Severe Verified 11/22/20 03:31 [From Macrobid] Iodinated Contrast Media Allergy Itching Verified 11/22/20 03:31 [Iodinated Contrast- Oral and IV Dye] aspirin AdvReac Nausea Verified 11/22/20 03:31 nicotine [From Nicoderm CQ] AdvReac Itching Verified 11/22/20 03:31 General LOUISA: 3 Review of Systems All systems reviewed & are unremarkable except as noted in HPI and below PFSH Medical History (Updated 11/22/20 @ 05:23 by Shahzad Alexis DO) Adenomatous colon polyp COPD with acute exacerbation Cystocele Depression GERD (gastroesophageal reflux disease) HTN (hypertension) Hypercholesterolemia Hyperlipidemia Hypokalemia Kidney stones Labial lesion Left flank pain Left leg pain Left leg paresthesias Obesity Osteopenia Prediabetes Recurrent UTI Smoker Vaginal atrophy Vaginal lesion Surgical History Cholecystectomy Colonoscopy - MAC (06/14/16) Vaginal hysterectomy Family History Father Colon cancer Social History Smoking/Tobacco Use Status: Former Tobacco Use Smoking risk assessment performed?: Yes Alcohol Intake: never Drug use: Never Substance use type: does not use Do you feel safe at home: Yes Do you feel safe in your relationship?: Yes Additional Social history: Not in a current relationship History History 1 Para 1 Hx # Term Pregnancies Multiple births Hx # Pregnancies Ectopic pregnancies AB induced Hx Number of Living Children AB spontaneous Exam Narrative Exam Narrative: 1.Const: Well-nourished, Well-developed, appearing stated age 2.Eyes: PERRL, no conjunctival injection, and symmetrical lids. 3.ENT: Atraumatic external nose and ears. Moist MM. Neck: Symmetric, trachea midline, No thyromegaly. 4.CVS: +S1/S2, No murmurs or gallops. Peripheral pulses 2+ and equal in all extremities. Brisk capillary refill in all extremities. 5.RESP: Notable labored respiratory effort, diffuse wheezes throughout, minimal crackles in bases. No rhonchi. 6.GI: Soft, Nontender/Nondistended, No hepatosplenomegaly. No guarding or rebound. 7.MSK: Normocephalic/Atraumatic, Extremities w/o deformity or ttp No cyanosis or clubbing, Normal movement of all extremities 8.Skin: Warm, Dry. No rashes or lesions. 9.Neuro: hot dip plater II-XII grossly intact. Sensation grossly intact, no focal neurologic deficits. 10.Psych: (AAO) x3. Appropriate mood and affect
[2020-11-22] MEDS: Albuterol/Ipratropium 3 ML UPD VIAL 9 ML UPD (03:40)
[2020-11-22 03:52] LABS: BE (Venous) 3 mmol/L (-2-3); HCO3 (Venous) 28 mmol/L (23-28); O2 Sat (Venous) 85 %; TCO2 (Venous) 25 mmol/L (24-29); pCO2 (Venous) 45 mmHg (41-51); pO2 (Venous) 50 mmHg
[2020-11-22 03:53] LABS: Abs Immature Grans 0.01 10^3/uL (0.0-0.06); Absolute Basophil Count 0.03 10^3/uL (0.0-0.2); Absolute Eosinophil Count 0.17 10^3/uL (0.0-0.7); Absolute Lymphocyte Count 2.12 10^3/uL (1.2-3.4); Absolute Monocyte Count 0.57 10^3/uL (0.1-0.8); Absolute Neutrophil Count 5.54 10^3/uL (1.2-6.7); Basophils % 0.4; HGB 12.7 g/dL (11.2-15.7); Immature Grans % 0.1; Lymphocytes % 25.1; MCH 27.1 pg (27.0-33.0); MCHC 31.8 % (32.0-36.0); MCV 85.5 fL (80-95); MPV 9.8 fL (8.0-11.0); Monocytes % 6.8; Neutrophils % 65.6; Nucleated RBC 0 %; Platelet Count 214 10^3/uL (130-400); RBC 4.68 10^6/uL (3.93-5.22); RDW-SD 50.1 fL; WBC 8.44 10^3/uL (4.4-10.8)
[2020-11-22 03:59] LABS: Source Nasal/Nares
[2020-11-22 04:09] LABS: ALT 19 U/L (14-59); AST 20 U/L (15-37); Albumin 3.9 g/dL (3.4-5.0); Alkaline Phosphatase 90 U/L (46-116); Anion Gap 9.9 mmol/L (3-11); BUN 12 mg/dL (7-18); Bilirubin, Total 0.3 mg/dL (0.2-1.0); CO2 28.1 mmol/L (21.0-32.0); CREATININE 1.1 mg/dL (0.55-1.02); Calcium 8.9 mg/dL (8.5-10.1); Chloride 104 mmol/L (98-107); Estimated GFR 48.42 (mL/min/1.73m2); Glucose 120 mg/dL (74-106); Potassium 3.5 mmol/L (3.5-5.1); Sodium 142 mmol/L (136-145); Total Protein 7.4 g/dL (6.4-8.2); Troponin I < 0.05 ng/mL (<0.06)
[2020-11-22 04:48] LABS: COVID-19 PCR Negative (Negative)
--- NOTE | 2020-11-22 04:59 | DI.VRAD_ITS ---
PROCEDURE INFORMATION: Exam: XR Chest Exam date and time: 11/22/2020 3:30 AM Age: 75 years old Clinical indication: Other: SOB, cough, fever TECHNIQUE: Imaging protocol: XR of the chest. Views: 1 view. COMPARISON: CR XR CHEST 2V PA LATERAL 05/12/2018 3:00 PM FINDINGS: Lungs: Mild chronic interstitial prominence. No consolidation. Pleural spaces: No pleural effusion. No pneumothorax. Heart/Mediastinum: No cardiomegaly. Bones/joints: Grossly stable. IMPRESSION: No acute findings. No radiographic evidence for pneumonia Dictated and Authenticated by: Carlos Garcia MD. Ordering:MARII Pike MD
[2020-11-22] MEDS: Albuterol/Ipratropium 3 ML UPD VIAL 6 ML UPD (05:22)
[2020-11-22] MEDS: Normal Saline 500 ML IV (05:23)
[2020-11-22 07:33] LABS: Troponin I 0.07 ng/mL (<0.06)
--- NOTE | 2020-11-22 08:47 | W.PM.HP.N ---
Date of service: 11/22/20 Time of Service: 08:48 Assessment and Plan Assessment and plan (1) COPD with acute exacerbation: Status: Chronic Assessment and plan: I have reviewed her chest x-ray and laboratory studies and electrocardiogram. She will be admitted to the hospital and continued on respiratory treatments. Respiratory care consult with her to help her with use of the spacer. I do not think she needs antibiotics at this time. (2) Elevated troponin: Status: Acute Assessment and plan: Her 1st troponin in the emergency department was slightly elevated. This will be rechecked later today. Her electrocardiogram does not show any abnormalities. History of Present Illness History of Present Illness Chief Complaint: Dyspnea Narrative: This 75-year-old patient is here because of shortness of breath. She began getting ill about 5 days ago. She has had increased cough. She has not been around has been sick. She did use her inhalers as instructed at home but does not use spacers. She has had both coronavirus vaccines about a week ago had a flu vaccine. She has had some cough that is productive with a small amount of white sputum. She did smoke in the past but quit a few years ago. He has had no chest pain but has had pressure in her chest. She went to the doctor's office yesterday and asked for some cough medicine with codeine they would give it to her. She says she uses this carefully when she does get it at home as a prescription. She was Going up and just a few stairs in her home last night and was very short of breath and came to the hospital earlier this morning. She required number respiratory treatments this morning in the emergency department was felt best to admit her to the hospital. She would like to go home as soon as possible because she has a dog at 18 years old and needs care. Review of Systems Constitutional Constitutional: Denies chills, Denies fatigue and Denies fever(s) ENT Ears, Nose, Mouth, and Throat: Denies abnormal hearing and Denies dysphagia Cardiovascular Cardiovascular: Denies chest pain, Denies irregular heart rhythm, Denies radiating jaw, neck or arm pain, Reports dyspnea and Reports dyspnea on exertion Respiratory Respiratory: Reports cough, Denies excessive phlegm production, Reports dyspnea, Reports dyspnea on exertion and Reports wheezing Gastrointestinal Gastrointestinal: Denies constipation, Denies dysphagia, Denies diarrhea, Denies loose stools and Denies vomiting Genitourinary Genitourinary: Denies difficulty voiding and Denies dysuria Musculoskeletal Musculoskeletal: Reports system reviewed and no additional complaints, except as documented Neurologic Neurologic: Denies abnormal hearing Endocrine Endocrine: Denies fatigue Allergic/Immunologic Allergic/Immunologic: Reports wheezing [facility] Medical History (Updated 11/22/20 @ 08:55 by Joe Cárdenas MD) Adenomatous colon polyp COPD with acute exacerbation Cystocele Depression GERD (gastroesophageal reflux disease) HTN (hypertension) Hypercholesterolemia Hyperlipidemia Hypokalemia Kidney stones Labial lesion Left flank pain Left leg pain Left leg paresthesias Obesity Osteopenia Prediabetes Recurrent UTI Smoker Vaginal atrophy Vaginal lesion Surgical History Cholecystectomy Colonoscopy - MAC (06/14/16) Vaginal hysterectomy Family History Father Colon cancer Social History Smoking/Tobacco Use Status: Former Tobacco Use Smoking risk assessment performed?: Yes Alcohol Intake: never Drug use: Never Substance use type: does not use Do you feel safe at home: Yes Do you feel safe in your relationship?: Yes Additional Social history: Not in a current relationship History History 1 Para 1 Hx # Term Pregnancies Multiple births Hx # Pregnancies Ectopic pregnancies AB induced Hx Number of Living Children AB spontaneous Meds Allergies and Home Medications Allergies Allergy/AdvReac Type Severity Reaction Status Date / Time nitrofurantoin Allergy Severe Verified 11/22/20 03:31 [From Macrobid] Iodinated Contrast Media Allergy Itching Verified 11/22/20 03:31 [Iodinated Contrast- Oral and IV Dye] aspirin AdvReac Nausea Verified 11/22/20 03:31 nicotine [From Nicoderm CQ] AdvReac Itching Verified 11/22/20 03:31 Home Medications Medication Instructions Recorded Confirmed Type aspirin [Aspir-81] 81 mg PO DAILY 11/14/13 11/22/20 History losartan-hydrochlorothiazide 1 tab PO DAILY 11/14/13 11/22/20 History lovastatin 20 mg PO DAILY 11/14/13 11/22/20 History melatonin 20 mg PO HS 05/20/16 11/22/20 History omeprazole 20 mg PO DAILY tab-cap 05/20/16 11/22/20 History albuterol sulfate 90 mcg/actuation 2 puff IH Q6H PRN 02/15/19 11/22/20 History aerosol inhaler amlodipine 5 mg tablet 10 mg PO DAILY tab 02/15/19 11/22/20 History fluticasone propionate 115 2 puff IH BID 02/15/19 11/22/20 History mcg-salmeterol 21 mcg/actuation HFA inhaler tizanidine 4 mg capsule 4 mg PO TID PRN 02/15/19 11/22/20 History fluticasone propionate 230 1 puff INHALATION DAILY g 09/22/20 11/22/20 History mcg-salmeterol 21 mcg/actuation HFA inhaler Exam Const General: cooperative, comfortable and no acute distress Nutritional Appearance: obese Orientation: alert, awake and oriented x3 Neck Neck: normal visual inspection and no lymphadenopathy Thyroid: thyroid normal Resp Effort & Inspection: normal respiratory effort and able to speak in complete sentences Auscultation: no rales, no rhonchi and no wheezes Cardio Jugular venous pressure: no JVD Rate: regular rate Rhythm: regular rhythm Heart Sounds: S1 normal, S2 normal, no gallops and no murmurs GI Palpation: soft, no hepatosplenomegaly and nontender Skin General skin exam: no rashes or lesions noted Extrem General: normal to inspection and no edema Results Labs Result diagrams: 11/22/20 03:15 11/22/20 03:15 Labs: Laboratory Results - last 24 hr 11/22/20 11/22/20 11/22/20 03:15 03:15 03:15 WBC 8.44 RBC 4.68 Hgb 12.7 Hct 40.0 MCV 85.5 MCH 27.1 MCHC 31.8 L RDW 16.0 H Plt Count 214 MPV 9.8 Immature Gran % 0.1 Neutrophils % 65.6 Lymphocytes % 25.1 Monocytes % 6.8 Eosinophils % 2.0 Basophils % 0.4 Nucleated RBC % 0 Absolute Neutrophils 5.54 Absolute Lymphocytes 2.12 Absolute Monocytes 0.57 Absolute Eosinophils 0.17 Absolute Basophils 0.03 VBG pH 7.40 VBG pCO2 45 VBG pO2 50 VBG HCO3 28 VBG Total CO2 25 VBG O2 Saturation 85 VBG Base Excess 3 Sodium 142 Potassium 3.5 Chloride 104 Carbon Dioxide 28.1 Anion Gap 9.9 BUN 12 Creatinine 1.1 H Estimated GFR/1.73 m2 48.42 Glucose 120 H Calcium 8.9 Total Bilirubin 0.3 AST 20 ALT 19 Alkaline Phosphatase 90 Troponin I < 0.05 Total Protein 7.4 Albumin 3.9 COVID-19 Source SARS-CoV-2 (PCR) 11/22/20 11/22/20 03:45 06:20 WBC RBC Hgb Hct MCV MCH MCHC RDW Plt Count MPV Immature Gran % Neutrophils % Lymphocytes % Monocytes % Eosinophils % Basophils % Nucleated RBC % Absolute Neutrophils Absolute Lymphocytes Absolute Monocytes Absolute Eosinophils Absolute Basophils VBG pH VBG pCO2 VBG pO2 VBG HCO3 VBG Total CO2 VBG O2 Saturation VBG Base Excess Sodium Potassium Chloride Carbon Dioxide Anion Gap BUN Creatinine Estimated GFR/1.73 m2 Glucose Calcium Total Bilirubin AST ALT Alkaline Phosphatase Troponin I 0.07 H Total Protein Albumin COVID-19 Source Nasal/Nares SARS-CoV-2 (PCR) Negative Last Vital Signs Temp 36.6 C 11/22/20 07:40 Pulse 90 11/22/20 07:40 Resp 22 11/22/20 07:40 BP 143/65 H 11/22/20 07:40 Pulse Ox 94 11/22/20 07:40
--- NOTE | 2020-11-22 09:00 | RT.EKG_ITS ---
APPROVED REPORT Exam: Resting ECG Reason for Exam: chest pain Patient Location: I HR:87 bpm ECG Measurements Heart Rate 87 AXIS ND 147 P 74 QRSd 87 QRS 63 QT 435 T 44 QTc 523 Conclusion Sinus rhythm...normal P axis, V-rate 60- 99 Left atrial enlargement...P, P'>60mS, <-0.15mV V1 Prolonged QT interval...QTc >500mS
[2020-11-22] MEDS: amLODIPine 5 MG TAB 10 MG PO (09:04)
[2020-11-22] MEDS: Omeprazole 20 MG CAPCR PO (09:04)
[2020-11-22] MEDS: Aspirin E.C. 81 MG TABEC PO (09:04)
[2020-11-22] MEDS: Enoxaparin 40 MG/0.4 ML SYR SC (09:04)
[2020-11-22] MEDS: Normal Saline Flush 10 ML SYR IVP ×2 (09:05→19:37)
--- NOTE | 2020-11-22 09:19 | PDOC.CMIN ---
- If Service Date Differs Date of service: 11/22/20 Time of Service: 09:19 Care Management Initial Assess REASON FOR HOSPITALIZATION:: COPD with exacerbation, Elevated troponin PAST MEDICAL HISTORY/PAST SURGICAL HISTORY:: Medical History (Updated 11/22/20 @ 08:55 by Joe Cárdenas MD). Adenomatous colon polyp. COPD with acute exacerbation. Cystocele. Depression. GERD (gastroesophageal reflux disease). HTN (hypertension). Hypercholesterolemia. Hyperlipidemia. Hypokalemia. Kidney stones. Labial lesion. Left flank pain. Left leg pain. Left leg paresthesias. Obesity. Osteopenia. Prediabetes. Recurrent UTI. Smoker. Vaginal atrophy. Vaginal lesion. Surgical History . Cholecystectomy. Colonoscopy - MAC (06/14/16). Vaginal hysterectomy PREVIOUS FUNCTIONAL STATUS/SOCIAL/FAMILY SUPPORTS:: Candis lives alone at a senior housing complex in the town [place], with her 18 year old Pothai DEAN. 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 She is independent at baseline, but does not drive. Her sister Isabella provides transporation when needed. Candis has 6 sisters, 4 that live in [place] and 2 that live in [place]. Her sister Isabella lives in the same housing complex she does, but is usually busy working respite. Her sister Monalisa Porter who also lives in [place] has agreed to care for her dog while she's in the hospital. CURRENT FUNCTIONAL STATUS:: Candis was lying in bed when CM met with her. She was pleasant and easily engaged in conversation. CM was able to reach her sister Monalisa ([phone]) who also lives in [place] and she is willing to care for Candis's dog while she is in the hospital. Candis has a phone at her bedside and has no further needs at this time. ADVANCE DIRECTIVES:: None on file at [facility]. Candis reports that she has a recently updated copy at home. She states [facility] Pantoja is her primary [facility] and Priya Grant is her secondary [facility]. Has patient been provided with info about the portal/API?: Yes Did the patient sign up for the portal?: No CODE STATUS:: DNI INSURANCE COVERAGE / FINANCIAL ISSUES:: [facility]. Medicaid. Medicare. [facility] CURRENT HOME/COMMUNITY SERVICES/EQUIPMENT:: None at this time. PRIMARY CARE PHYSICIAN:: Mitzi Parham PATIENT/FAMILY EDUCATION NEEDS:: Review discharge instructions, limitations and plan to follow up with community providers. Ask me three. TRANSPORTATION:: Via private vehicle with sister vs [facility] private vehicle. PLAN:: Discharge home via private vehicle with family vs. [facility] private vehicle when medically cleared by MD. Follow up with community providers and discharge plan of care.
[2020-11-22] MEDS: Aspirin 81 MG CHEW 243 MG CH (09:59)
[2020-11-22] MEDS: nitroGLYcerin 0.4 MG TAB SL ×2 (09:59→12:43)
--- NOTE | 2020-11-22 10:19 | NUR.NOTE ---
Nursing Note: Patient given aspirin 243 mg and nitro for the tightness at 955 resolved by 1010 . Patient now on tele, ekg ordered, patient is relaxing at this time , call woodruff is in reach
--- NOTE | 2020-11-22 10:46 | NUR.NOTE ---
Nursing Note: noted critical lab trop 0.10 add enoxaparin and aspirin for VTE
--- NOTE | 2020-11-22 11:12 | W.PM.PROGNOT ---
Date of Service Date of service: 11/22/20 Time of Service: 11:12 Assessment and Plan Assessment and plan (1) NSTEMI (non-ST elevated myocardial infarction): Status: Acute Assessment and plan: chest pressure relieved by nitro. troponin climbing, now at 0.1 heparin drip started, plavix loaded, asa 324 mg given will repeat trop at 1400, add BNP will consult cards echo pending Case discussed with Florence STOKES who is in agreement with above, recommends atorvastatin [address] of lovastatin. consider stress testing if troponin normalizes, ok for outpatient. call back if continues to trend up or ongoing chest pain/changes in status. losartan/hctz placed on hold (2) COPD with acute exacerbation: Status: Chronic Assessment and plan: will add influenza continue with scheduled atrovent, changed to levalbuterol discussed with Dr Ferrell Subjective Subjective Patient reports: still having pain and shortness of breath Interval history since last seen: patient reports that she is having some chest pressure that worsens with her shortness of breath. given nitro with resolution of the chest pressure. when queried about her presentation she reports that she has had cough and shortness of breath for 5 days since receiving influenza vaccine but last night while walking upstairs after letting her dog out she developed chest pressure and shortness of breath that was so bad she thought she was going to collapse. with rest her symptoms subsided. Exam Const General: cooperative and ill appearing acutely Nutritional Appearance: obese Orientation: alert, awake and oriented x3 HENMT Head: normal to inspection, normocephalic and atraumatic Mouth: oral mucosae normal Resp Effort & Inspection: cough and tachypneic Auscultation: diminished lung sounds and wheezes Cardio Rate: regular rate Rhythm: regular rhythm GI Inspection: normal to inspection Palpation: soft and nontender Auscultation: normal bowel sounds Skin General skin exam: no rashes or lesions noted Neuro General: patient alert, patient awake, patient oriented x3 and no focal motor deficits Cognition: normal cognition Speech: speech normal Extrem General: normal to inspection, full ROM and no pedal edema Objective Last Vital Signs Temp 36.3 C L 11/22/20 10:59 Pulse 85 11/22/20 10:59 Resp 24 11/22/20 10:59 BP 157/81 H 11/22/20 10:59 Pulse Ox 95 11/22/20 10:59 Laboratory Results - last 24 hr 11/22/20 11/22/20 11/22/20 03:15 03:15 03:15 WBC 8.44 RBC 4.68 Hgb 12.7 Hct 40.0 MCV 85.5 MCH 27.1 MCHC 31.8 L RDW 16.0 H Plt Count 214 MPV 9.8 Immature Gran % 0.1 Neutrophils % 65.6 Lymphocytes % 25.1 Monocytes % 6.8 Eosinophils % 2.0 Basophils % 0.4 Nucleated RBC % 0 Absolute Neutrophils 5.54 Absolute Lymphocytes 2.12 Absolute Monocytes 0.57 Absolute Eosinophils 0.17 Absolute Basophils 0.03 VBG pH 7.40 VBG pCO2 45 VBG pO2 50 VBG HCO3 28 VBG Total CO2 25 VBG O2 Saturation 85 VBG Base Excess 3 Sodium 142 Potassium 3.5 Chloride 104 Carbon Dioxide 28.1 Anion Gap 9.9 BUN 12 Creatinine 1.1 H Estimated GFR/1.73 m2 48.42 Glucose 120 H Calcium 8.9 Total Bilirubin 0.3 AST 20 ALT 19 Alkaline Phosphatase 90 Troponin I < 0.05 Total Protein 7.4 Albumin 3.9 COVID-19 Source SARS-CoV-2 (PCR) 11/22/20 11/22/20 11/22/20 03:45 06:20 10:00 WBC RBC Hgb Hct MCV MCH MCHC RDW Plt Count MPV Immature Gran % Neutrophils % Lymphocytes % Monocytes % Eosinophils % Basophils % Nucleated RBC % Absolute Neutrophils Absolute Lymphocytes Absolute Monocytes Absolute Eosinophils Absolute Basophils VBG pH VBG pCO2 VBG pO2 VBG HCO3 VBG Total CO2 VBG O2 Saturation VBG Base Excess Sodium Potassium Chloride Carbon Dioxide Anion Gap BUN Creatinine Estimated GFR/1.73 m2 Glucose Calcium Total Bilirubin AST ALT Alkaline Phosphatase Troponin I 0.07 H 0.10 H* Total Protein Albumin COVID-19 Source Nasal/Nares SARS-CoV-2 (PCR) Negative
[2020-11-22] MEDS: Clopidogrel 300 MG TAB PO (11:24)
[2020-11-22 12:07] LABS: NT-proBNP 728 pg/mL (<300)
[2020-11-22 13:34] LABS: Calculated LDL 110 mg/dL (<100); Cholesterol 206 mg/dL (<200); HDL Cholesterol 85 mg/dL (40-60); Triglyceride 56 mg/dL (<150)
[2020-11-22] MEDS: Ipratropium 0.5 MG/2.5 ML UPD VIAL UPD ×3 (13:53→23:51)
[2020-11-22] MEDS: Levalbuterol 1.25 MG/3 ML UPD VIAL UPD ×2 (13:54→19:35)
--- NOTE | 2020-11-22 18:34 | NUR.NOTE ---
Nursing Note: Addressed patients concern for cough syrup and sleep aid. Night hospitalist will be notified
[2020-11-22 18:38] LABS: PTT Activated 130.4 sec (21.0-27.5)
--- NOTE | 2020-11-22 18:46 | NUR.NOTE ---
Nursing Note: Critical ptt 130.4 per protocol Drip stopped for 1 hr. restart at 250 unit 2.5 ml less in 60 minute. Verified with Liang Mendes RN. He will assume patient at 1900,
[2020-11-22] MEDS: Atorvastatin 40 MG TAB PO (19:36)
[2020-11-22] MEDS: Budesonide/Formoterol 80/4.5 6.9 GM 60 PUFF INH IH (19:36)
[2020-11-22] MEDS: tiZANidine 4 MG TABLET PO (19:36)
[2020-11-22] MEDS: guaiFENesin 600 MG TABCR PO (19:36)
[2020-11-22] MEDS: Melatonin 3 MG TAB PO (19:36)
[2020-11-23] VITALS (13 sets, daily range): BP systolic 142–195; BP diastolic 66–82; PULSE 64–100; RESP 2–23; TEMP 36.5–37.4; O2SAT 92–97
[2020-11-23] MEDS: Levalbuterol 1.25 MG/3 ML UPD VIAL UPD ×2 (01:40→05:22)
[2020-11-23 02:19] LABS: PTT Activated 54.6 sec (21.0-27.5)
[2020-11-23] MEDS: Ipratropium 0.5 MG/2.5 ML UPD VIAL UPD ×3 (05:22→23:43)
[2020-11-23] MEDS: Omeprazole 20 MG CAPCR PO (08:16)
[2020-11-23] MEDS: amLODIPine 5 MG TAB 10 MG PO (08:16)
[2020-11-23] MEDS: Clopidogrel 75 MG TAB PO (08:16)
[2020-11-23] MEDS: guaiFENesin 600 MG TABCR PO ×2 (08:16→21:27)
[2020-11-23 08:28] LABS: PTT Activated 55.5 sec (21.0-27.5)
[2020-11-23] MEDS: Aspirin E.C. 81 MG TABEC PO (08:37)
[2020-11-23 09:10] LABS: Abs Immature Grans 0.03 10^3/uL (0.0-0.06); Absolute Basophil Count 0.02 10^3/uL (0.0-0.2); Absolute Eosinophil Count 0.03 10^3/uL (0.0-0.7); Absolute Lymphocyte Count 1.71 10^3/uL (1.2-3.4); Absolute Monocyte Count 0.54 10^3/uL (0.1-0.8); Absolute Neutrophil Count 6.63 10^3/uL (1.2-6.7); Basophils % 0.2; Eosinophils % 0.3; HCT 35.5 % (36.0-46.0); HGB 11.3 g/dL (11.2-15.7); Immature Grans % 0.3; Lymphocytes % 19.1; MCH 27.2 pg (27.0-33.0); MCHC 31.8 % (32.0-36.0); MCV 85.3 fL (80-95); MPV 10.3 fL (8.0-11.0); Neutrophils % 74.1; Nucleated RBC 0 %; Platelet Count 204 10^3/uL (130-400); RBC 4.16 10^6/uL (3.93-5.22); RDW 16.5 % (11.7-14.6); RDW-SD 51.7 fL; WBC 8.96 10^3/uL (4.4-10.8)
--- NOTE | 2020-11-23 09:15 | RT.EKG_ITS ---
APPROVED REPORT Exam: Resting ECG Reason for Exam: chest pain, elevated troponin Patient Location: I HR:74 bpm ECG Measurements Heart Rate 74 AXIS KS 135 P 79 QRSd 94 QRS 72 QT 399 T 62 QTc 443 Conclusion Sinus rhythm...normal P axis, V-rate 60- 99 Left atrial enlargement...P, P'>60mS, <-0.15mV V1 Otherwise normal
--- NOTE | 2020-11-23 09:23 | W.PM.PROGNOT ---
Date of Service Date of service: 11/23/20 Time of Service: 09:23 Assessment and Plan Assessment and plan (1) COPD with acute exacerbation: Status: Chronic Assessment and plan: continue with scheduled atrovent, changed to levalbuterol IV steroids added, will given burst following. pulmonary consult placed. continue to wean oxygen. discussed with Dr Ferrell (2) Elevated troponin: Status: Acute Assessment and plan: cardiology evaluation, unlikely NSTEMI. When her acute illness has resolved, she could be considered for an ischemic evaluation, though regadenoson myocardial perfusion imaging would be relatively contraindicated given her COPD. That would necessitate either dobutamine stress test or coronary CTA. Subjective Subjective Patient reports: no new complaints, tolerating liquids well, tolerating a regular diet and afebrile Exam Const General: cooperative and ill appearing acutely Nutritional Appearance: obese Orientation: alert, awake and oriented x3 HENMT Head: normal to inspection, normocephalic and atraumatic Mouth: oral mucosae normal Resp Effort & Inspection: cough and tachypneic Auscultation: diminished lung sounds and wheezes Cardio Rate: regular rate Rhythm: regular rhythm GI Inspection: normal to inspection Palpation: soft and nontender Auscultation: normal bowel sounds Skin General skin exam: no rashes or lesions noted Neuro General: patient alert, patient awake, patient oriented x3 and no focal motor deficits Cognition: normal cognition Speech: speech normal Extrem General: normal to inspection, full ROM and no pedal edema Objective Last Vital Signs Temp 37.1 C 11/23/20 07:49 Pulse 100 H 11/23/20 07:49 Resp 23 11/23/20 07:49 BP 162/80 H 11/23/20 08:14 Pulse Ox 92 11/23/20 07:49 Laboratory Results - last 24 hr 11/22/20 11/22/20 11/22/20 03:20 06:20 10:00 WBC RBC Hgb Hct MCV MCH MCHC RDW Plt Count MPV Immature Gran % Neutrophils % Lymphocytes % Monocytes % Eosinophils % Basophils % Nucleated RBC % Absolute Neutrophils Absolute Lymphocytes Absolute Monocytes Absolute Eosinophils Absolute Basophils APTT Hemoglobin A1c 6.0 H Troponin I 0.10 H* NT-Pro-B Natriuret Pep Triglycerides 56 Total Cholesterol 206 H LDL Cholesterol, Calc 110 H HDL Cholesterol 85 11/22/20 11/22/20 11/22/20 11:37 11:37 13:58 WBC RBC Hgb Hct MCV MCH MCHC RDW Plt Count MPV Immature Gran % Neutrophils % Lymphocytes % Monocytes % Eosinophils % Basophils % Nucleated RBC % Absolute Neutrophils Absolute Lymphocytes Absolute Monocytes Absolute Eosinophils Absolute Basophils APTT 26.0 Hemoglobin A1c Troponin I 0.10 H* NT-Pro-B Natriuret Pep 728 H Triglycerides Total Cholesterol LDL Cholesterol, Calc HDL Cholesterol 11/22/20 11/23/20 11/23/20 17:48 01:50 07:54 WBC RBC Hgb Hct MCV MCH MCHC RDW Plt Count MPV Immature Gran % Neutrophils % Lymphocytes % Monocytes % Eosinophils % Basophils % Nucleated RBC % Absolute Neutrophils Absolute Lymphocytes Absolute Monocytes Absolute Eosinophils Absolute Basophils APTT 130.4 H* D 54.6 H D 55.5 H Hemoglobin A1c Troponin I NT-Pro-B Natriuret Pep Triglycerides Total Cholesterol LDL Cholesterol, Calc HDL Cholesterol 11/23/20 09:01 WBC 8.96 RBC 4.16 Hgb 11.3 Hct 35.5 L MCV 85.3 MCH 27.2 MCHC 31.8 L RDW 16.5 H Plt Count 204 MPV 10.3 Immature Gran % 0.3 Neutrophils % 74.1 Lymphocytes % 19.1 Monocytes % 6.0 Eosinophils % 0.3 Basophils % 0.2 Nucleated RBC % 0 Absolute Neutrophils 6.63 Absolute Lymphocytes 1.71 Absolute Monocytes 0.54 Absolute Eosinophils 0.03 Absolute Basophils 0.02 APTT Hemoglobin A1c Troponin I NT-Pro-B Natriuret Pep Triglycerides Total Cholesterol LDL Cholesterol, Calc HDL Cholesterol
[2020-11-23 09:28] LABS: Anion Gap 7.7 mmol/L (3-11); BUN 17 mg/dL (7-18); CO2 28.3 mmol/L (21.0-32.0); CREATININE 0.8 mg/dL (0.55-1.02); Calcium 8.7 mg/dL (8.5-10.1); Chloride 106 mmol/L (98-107); Glucose 137 mg/dL (74-106); Potassium 3.1 mmol/L (3.5-5.1); Sodium 142 mmol/L (136-145); Troponin I 0.05 ng/mL (<0.06)
[2020-11-23] MEDS: Metoprolol 12.5 MG TAB PO ×2 (09:47→21:26)
[2020-11-23] MEDS: Furosemide 20 MG/2 ML VIAL IVP (09:48)
[2020-11-23] MEDS: methylPREDNISolone SUCC 125 MG VIAL 60 MG IVP (09:48)
[2020-11-23] MEDS: Budesonide/Formoterol 80/4.5 6.9 GM 60 PUFF INH IH ×2 (10:04→21:29)
--- NOTE | 2020-11-23 11:34 | PDOC.CMPRO ---
- If Service Date Differs Date of service: 11/23/20 Time of Service: 11:34 Care Management Progress Note S/O: Candis is sitting up in bed watching television when CM comes to meet with her. She states all of the hospital staff are nice and helpful and especially praises her nurse, Immanuel. Candis reports feeling better today and says she has less pressure in her chest. She is on O2 through a nasal cannula. Candis is not on oxygen at baseline. A cardiology consult is ordered and Candis is started on beta blockers and Lasix. A: Candis is a 75 year old female admitted to [facility] on 11/22/2020 for COPD exacerbation. P: Anticipate Candis will be discharged home with no new services when medically cleared by provider. She will follow up with her PCP and discharge plan of care as directed. Family will drive her home via private vehicle when ready vs. RCT coordinated by CM. CM will continue to support Candis and any discharge planning needs.
--- NOTE | 2020-11-23 11:58 | CCONE_ITS ---
Date of service: 11/23/20 Time of Service: 11:59 Assessment and Plan Assessment and plan (1) COPD with acute exacerbation: Status: Chronic Assessment and plan: I believe that the patient's primary problem is related to her respiratory status. She has ongoing wheeze. This is often perceived as tightness in the chest and can be difficult to distinguish from a cardiac cause. Overall I do not find her troponin to be particularly impressive. Her EKGs are normal. Her echo is normal. I would concentrate efforts on treating her bronchospasm. She may require increasing doses of steroids. Would consider pulmonary evaluation. When her acute illness has resolved, she could be considered for an ischemic evaluation, though regadenoson myocardial perfusion imaging would be relatively contraindicated given her COPD. That would necessitate either dobutamine stress test or coronary CTA. I see no urgency to pursue an ischemic evaluation at this time Thank you for the opportunity to participate in this patient's care. Please not hesitate to contact me if you have additional questions or concerns History of Present Illness History of Present Illness Chief Complaint: Shortness of breath and chest tightness Narrative: This 75-year-old woman was admitted to the hospital several days ago with progressive shortness of breath. She carries a diagnosis of chronic obstructive pulmonary disease due to prior tobacco use. She reports she quit smoking several years ago. She became ill last Friday with difficulty breathing and cough that was minimally productive of sputum. Because of progressive symptoms she came here to the hospital where she was noted to be wheezing. She was treated with bronchodilators and at least 1 dose of Solu-Medrol. She is now on oral prednisone. She had a troponin that was initially mildly abnormal 0.07. It is risen to 0.1. She continues to describe shortness of breath with associated tightness and heaviness in the chest. EKGs have been normal. An echocardiogram shows normal left ventricular function, normal wall motion, no valvular disease Consults Consult date: 11/23/20 Requesting physician: Emeli Jovel Review of Systems Cardiovascular Cardiovascular: Reports as per HPI, Reports dyspnea and Reports dyspnea on exertion Comments: Chest tightness Respiratory Respiratory: Reports chest congestion, Reports cough, Reports dyspnea, Reports dyspnea on exertion and Reports wheezing Allergic/Immunologic Allergic/Immunologic: Reports wheezing [facility] Medical History Adenomatous colon polyp COPD with acute exacerbation Cystocele Depression GERD (gastroesophageal reflux disease) HTN (hypertension) Hypercholesterolemia Hyperlipidemia Hypokalemia Kidney stones Labial lesion Left flank pain Left leg pain Left leg paresthesias Obesity Osteopenia Prediabetes Recurrent UTI Smoker Vaginal atrophy Vaginal lesion Surgical History Cholecystectomy Colonoscopy - MAC (06/14/16) Vaginal hysterectomy Family History Father Colon cancer Social History Smoking/Tobacco Use Status: Former Tobacco Use Smoking risk assessment performed?: Yes Alcohol Intake: never Drug use: Never Substance use type: does not use Do you feel safe at home: Yes Do you feel safe in your relationship?: Yes Additional Social history: Not in a current relationship History History 1 Para 1 Hx # Term Pregnancies Multiple births Hx # Pregnancies Ectopic pregnancies AB induced Hx Number of Living Children AB spontaneous Exam Narrative Exam Narrative: Mildly overweight, looks younger than stated age, short of breath at rest Neck Other: Unable to assess JVP. Carotid pulsations are grossly normal without bruits Resp Other: Patient is tachypneic. She has diffuse rhonchi and wheeze, with prolonged expiratory phase, no localizing findings Cardio Other: Heart is distant regular no murmur gallop Extrem Other: No significant edema Results Last Vital Signs Temp 36.9 C 11/23/20 11:32 Pulse 66 11/23/20 11:32 Resp 16 11/23/20 11:32 BP 146/81 H 11/23/20 11:32 Pulse Ox 92 11/23/20 11:32 Labs Result diagrams: 11/23/20 09:01 11/23/20 09:01 Labs: Laboratory Results - last 24 hr 11/22/20 11/22/20 11/22/20 03:20 06:20 11:37 WBC RBC Hgb Hct MCV MCH MCHC RDW Plt Count MPV Immature Gran % Neutrophils % Lymphocytes % Monocytes % Eosinophils % Basophils % Nucleated RBC % Absolute Neutrophils Absolute Lymphocytes Absolute Monocytes Absolute Eosinophils Absolute Basophils APTT Sodium Potassium Chloride Carbon Dioxide Anion Gap BUN Creatinine Estimated GFR/1.73 m2 Glucose Hemoglobin A1c 6.0 H Calcium Magnesium Troponin I NT-Pro-B Natriuret Pep 728 H Triglycerides 56 Total Cholesterol 206 H LDL Cholesterol, Calc 110 H HDL Cholesterol 85 11/22/20 11/22/20 11/22/20 11:37 13:58 17:48 WBC RBC Hgb Hct MCV MCH MCHC RDW Plt Count MPV Immature Gran % Neutrophils % Lymphocytes % Monocytes % Eosinophils % Basophils % Nucleated RBC % Absolute Neutrophils Absolute Lymphocytes Absolute Monocytes Absolute Eosinophils Absolute Basophils APTT 26.0 130.4 H* D Sodium Potassium Chloride Carbon Dioxide Anion Gap BUN Creatinine Estimated GFR/1.73 m2 Glucose Hemoglobin A1c Calcium Magnesium Troponin I 0.10 H* NT-Pro-B Natriuret Pep Triglycerides Total Cholesterol LDL Cholesterol, Calc HDL Cholesterol 11/23/20 11/23/20 11/23/20 01:50 07:54 09:01 WBC RBC Hgb Hct MCV MCH MCHC RDW Plt Count MPV Immature Gran % Neutrophils % Lymphocytes % Monocytes % Eosinophils % Basophils % Nucleated RBC % Absolute Neutrophils Absolute Lymphocytes Absolute Monocytes Absolute Eosinophils Absolute Basophils APTT 54.6 H D 55.5 H Sodium 142 Potassium 3.1 L Chloride 106 Carbon Dioxide 28.3 Anion Gap 7.7 BUN 17 Creatinine 0.8 Estimated GFR/1.73 m2 >= 60.00 Glucose 137 H Hemoglobin A1c Calcium 8.7 Magnesium Troponin I 0.05 NT-Pro-B Natriuret Pep Triglycerides Total Cholesterol LDL Cholesterol, Calc HDL Cholesterol 11/23/20 11/23/20 09:01 09:01 WBC 8.96 RBC 4.16 Hgb 11.3 Hct 35.5 L MCV 85.3 MCH 27.2 MCHC 31.8 L RDW 16.5 H Plt Count 204 MPV 10.3 Immature Gran % 0.3 Neutrophils % 74.1 Lymphocytes % 19.1 Monocytes % 6.0 Eosinophils % 0.3 Basophils % 0.2 Nucleated RBC % 0 Absolute Neutrophils 6.63 Absolute Lymphocytes 1.71 Absolute Monocytes 0.54 Absolute Eosinophils 0.03 Absolute Basophils 0.02 APTT Sodium Potassium Chloride Carbon Dioxide Anion Gap BUN Creatinine Estimated GFR/1.73 m2 Glucose Hemoglobin A1c Calcium Magnesium 2.0 Troponin I NT-Pro-B Natriuret Pep Triglycerides Total Cholesterol LDL Cholesterol, Calc HDL Cholesterol
[2020-11-23] MEDS: Potassium Chloride 20 MEQ TABCR PO ×2 (12:06→17:06)
--- NOTE | 2020-11-23 12:06 | W.NUTRFU ---
Date of service: 11/23/20 Time of Service: 12:06 Nutritional Follow up NOTE: Good PO intake on a regular diet. BMI is 35.7 kg/m2 c/2 class 2 obesity. No nutrition intervention at this time. Will continue to follow. Time Spent in Nutritional Counseling and Treatment: 0
--- NOTE | 2020-11-23 12:21 | NUR.NOTE ---
Nursing Note: Patient has started to bring up a small to moderate amount of yellow sticky sputum , this started about lunch time
[2020-11-23] MEDS: Normal Saline Flush 10 ML SYR IVP (17:06)
[2020-11-23] MEDS: Atorvastatin 40 MG TAB PO (21:26)
[2020-11-23] MEDS: Melatonin 3 MG TAB PO (21:26)
[2020-11-23] MEDS: LORazepam 1 MG TAB PO (22:26)
[2020-11-24] VITALS (13 sets, daily range): BP systolic 132–176; BP diastolic 72–86; PULSE 57–86; RESP 4–22; TEMP 36.1–36.8; O2SAT 90–97
[2020-11-24] MEDS: Ipratropium 0.5 MG/2.5 ML UPD VIAL UPD ×3 (06:30→18:44)
[2020-11-24] MEDS: Omeprazole 20 MG CAPCR PO (06:30)
[2020-11-24] MEDS: guaiFENesin 600 MG TABCR PO ×2 (08:02→20:27)
[2020-11-24] MEDS: predniSONE 20 MG TAB 40 MG PO (08:02)
[2020-11-24] MEDS: Azithromycin 250 MG TAB 500 MG PO (08:02)
[2020-11-24] MEDS: Aspirin E.C. 81 MG TABEC PO (08:02)
[2020-11-24] MEDS: amLODIPine 5 MG TAB 10 MG PO (08:02)
[2020-11-24] MEDS: Potassium Chloride 20 MEQ TABCR PO ×3 (08:02→17:42)
[2020-11-24] MEDS: Metoprolol 12.5 MG TAB PO ×2 (08:02→20:27)
[2020-11-24] MEDS: Budesonide/Formoterol 80/4.5 6.9 GM 60 PUFF INH IH ×2 (08:07→20:27)
[2020-11-24] MEDS: Levalbuterol 1.25 MG/3 ML UPD VIAL UPD ×2 (08:35→17:22)
[2020-11-24] MEDS: LORazepam 0.5 MG TAB PO ×2 (09:52→20:27)
--- NOTE | 2020-11-24 11:04 | IN_ITS ---
Date of service: 11/24/20 Time of Service: 11:04 PT Notes Visit Reasons: copd exacerbation Physical Therapy Inpatient Initial Evaluation Date: 11/24/2020 Referring Doctor: Ariane Ferrell MD PT Orders: PT CONSULT: Limited ability Precautions: Fall. Standard. Activity as tolerated. Patient Profile/Admitting Diagnosis: Shannan fritz is a 75-year-old female who presented to the ED on 11/22/2020 with shortness of breath increasing cough. Patient is diagnosed with COPD exacerbation and elevated troponin. PMHX: Medical History (Updated 11/22/20 @ 08:55 by Joe Cárdenas MD) Adenomatous colon polyp COPD with acute exacerbation Cystocele Depression GERD (gastroesophageal reflux disease) HTN (hypertension) Hypercholesterolemia Hyperlipidemia Hypokalemia Kidney stones Labial lesion Left flank pain Left leg pain Left leg paresthesias Obesity Osteopenia Prediabetes Recurrent UTI Smoker Vaginal atrophy Vaginal lesion Surgical History Cholecystectomy Colonoscopy - MAC (06/14/16) Vaginal hysterectomy Social History/Home Situation: Lives alone in a private home with 7 steps to enter with rails on both sides. Has a dog. Has a sister who lives close by and can be a good support as needed. Independent with PLOF. Did not use any assistive device. Has had no falls in the past year. Equipment Owned/DME: None Subjective: Reports weakness in B legs. Feels more secure with using a FWW. Agreeable to PT if she will need it upon discharge. Objective: General Observation: Seated on bedside chair. Oxygen supplementation via NC. Mental Status: Alert and oriented as to person, place, time, and purpose. Able to pay attention, focus, and respond appropriately. Pain: 0/10 Vital Signs: Oxygen saturation stayed above 92% on 2 L/min throughout session ROM: Right Upper Extremity: Shoulder Flexion WFL. Shoulder abduction WFL. Elbow flexion WFL. Wrist flexion WFL. Functional opening and closing of hand WFL. Left Upper Extremity: Shoulder Flexion WFL. Shoulder abduction WFL. Elbow flexion WFL. Wrist flexion WFL. Functional opening and closing of hand WFL. Right Lower Extremity: Hip flexion WFL. Hip abduction WFL. Knee flexion WFL. Ankle dorsiflexion WFL. Ankle plantarflexion WFL. Left Lower Extremity: Hip flexion WFL. Hip abduction WFL. Knee flexion WFL. Ankle dorsiflexion WFL. Ankle plantarflexion WFL. Strength: Right Upper Extremity: Shoulder flexors 4/5. Shoulder abductors 4/5. Elbow flexors 4/5. Elbow extensors 4/5. Pickling [employer] Maker strong. Left Upper Extremity: Shoulder flexors 4/5. Shoulder abductors 4/5. Elbow flexors 4/5. Elbow extensors 4/5. Pickling Solution Maker strong. Right Lower Extremity: Hip flexors 4-/5. Hip abductors 4-/5. Knee flexors 4-/5. Knee extensors 3+/5. Ankle dorsiflexors 4-/5. Ankle plantarflexors 4-/5. Left Lower Extremity: Hip flexors 4-/5. Hip abductors 4-/5. Knee flexors 4-/5. Knee extensors 3+/5. Ankle dorsiflexors 4-/5. Ankle plantarflexors 4-/5. Bed Mobility/Transfers: Sit to stand standby assist Stand to sit standby assist Gait: Instructed patient with level surface ambulation of 50 feet +30 feet + 40 feet requiring assist. Feli decreased. B knees has a tendency to give way but did not have LOB throughout activity. Moderate shortness of breath reported. Balance: Static Sitting: Normal Dynamic Sitting: Normal Static Standing: Fair Dynamic Standing: Fair Special Tests: Mobility Limitations Standardized Measure [facility] AM-PAC 6 clicks Basic Mobility Inpatient Short Form: Raw Score: 22 CMS Score: 21% deficit Informed Consent/Education: Patient was instructed in purpose of PT consult and plan of care. Agreeable to proceed with established PT POC to achieve personal goals. Assessment: Candis demonstrates functional mobility decline requiring the use of a front wheel walker for all transfers ambulation task performance to reduce fall risk. Patient has a tendency for both knees to give way but did not demonstrate loss of balance during today's ambulation assessment. Patient presents with clinical signs and symptoms consistent with current/admitting diagnoses that have resulted to mobility limitations, gait instability, generalized weakness, and overall ADL decline as demonstrated by the following impairment level findings: 1. Decreased strength to BLE major muscle groups 2. Impaired standing balance 3. Impaired activity tolerance 4. Moderate shortness of breath Impairments are contributing to the following functional limitations: 1. Decline in bed mobility skills 2. Decline in transfer skills 3. Difficulty with ambulation without assistive device and physical assistance 4. Increased completion time for mobility ADL performance 5. Increased risk for falls 6. Difficulty with managing steps alone safely Patient is assessed as a [id number] moderate complexity based on the following: History: 75-year-old female with past medical history as indicated above Examination: Demonstrable impairment in strength, balance, and mobility level w ith underlying impairments and functional limitations as exhibited above as well as deficit score of 21% utilizing the [facility] Mobility Inpatient Short Form Presentation: Evolving [id number] moderate Decision Making: complexity Goals: Goals X1 week 1. Supine-Sit independent 2. Sit-Supine independent 3. Sit-Stand independent 4. Stand-Sit independent with FWW 5. Bed-Chair independent with FWW 6. Chair-Bed independent with FWW 7. Independent gait on level surface with use of FWW for at least 300 feet without report of pain nor dyspnea 8. Independent stair negotiation while holding onto B rails for at least 10 steps without report of pain nor dyspnea 9. Independent with home exercise program 10. Good static and dynamic standing balance/tolerance Plan of Care/Treatment Plan: 1-2x/day, 7 days/week x 1 week. Plan of care has been reviewed with the JUNIOR SYSTEMS ADMINISTRATOR providing the service under Physical Therapy direction. Initiate Physical Therapy intervention for pain management as needed, strengthening, bed mobility, transfers, gait, stairs, balance training, and use of assistive device. DISCHARGE RECOMMENDATIONS: Patient will benefit from home health PT services in order to progress mobility level using least restrictive assistive ambulatory device, assess home safety, identify additional equipment needs, and establish a functional maintenance program that will increase ability of patient to remain at home. TREATMENT CODE/TIME: 9716 2 x 20 minutes, 9753 0 x 11 minutes beginning at 11:04 AM. Thank you for the opportunity to participate in the care of this patient. Geni Hernandez PT, DPT, CLT [facility] [place], [place]
--- NOTE | 2020-11-24 13:39 | PDOC.CMPRO ---
- If Service Date Differs Date of service: 11/24/20 Time of Service: 13:39 Care Management Progress Note S/O: Candis is sitting in a chair when CM comes to meet with her. She is no longer on oxygen. She reports meeting with the general production worker today and says she is recommending some medication changes. Candis is feeling hopeful that her breathing will continue to improve. She also worked with physical therapy earlier in the day and says she struggled to walk. She is looking forward to returning home and is agreeable to Home Health Physical Therapy. A: Candis is a 75 year old female admitted to [facility] on 11/22/2020 for COPD exacerbation. P: Candis will be discharged home with new PT when medically cleared by provider. She will follow up with her PCP, pulmonology and discharge plan of care as directed. Her sister will drive her home via private vehicle when ready. CM will continue to support Candis and any discharge planning needs.
--- NOTE | 2020-11-24 13:40 | PT.INTREAT ---
Date of service: 11/24/20 Time of Service: 13:40 PT Notes Visit Reasons: copd exacerbation Physical Therapy Inpatient Treatment Note Date: 11/24/2020 Precautions: Fall. Standard. Activity as tolerated. Subjective: Patient had a panic attack that lasted 3-5 minutes that halted further ambulation activity. Objective: General Observation: Seated on bedside chair at start of session. RT Merry present throughout gait oxymetry. Oxygen supplementation via NC. Mental Status: Alert and oriented as to person, place, time, and purpose. Able to pay attention, focus, and respond appropriately. Pain: 0/10 Vital Signs: Oxygen saturation stayed above 92% on 2 L/min throughout session Bed Mobility/Transfers: Sit to stand standby assist Stand to sit standby assist Gait: Instructed patient with level surface ambulation of 100 feet feet requiring contact-guard assist. Feli decreased. B knees has a tendency to give way but did not have LOB throughout activity. Moderate shortness of breath reported. Panic attack precluded further functional mobility retraining. Balance: Static Sitting: Normal Dynamic Sitting: Normal Static Standing: Fair Dynamic Standing: Fair Assessment: Had a panic attack during this afternoon's session which caused her to go into a coughing fit. RT Merry states that oxygen saturation stayed above 94% on RA while having the coughing bout. Nurse faiza Green, Nurse Fariba, and Nurse Immanuel assisted with pacifying patient in the hallway while this PT ensured that patient did not slide off the wheelchair. Patient safely recovered, wheeled back into her room, and was assisted back onto her bedside chair with no further issues. Plan of Care/Treatment Plan: 1-2x/day, 7 days/week x 1 week. Plan of care has been reviewed with the BOARD MILL SUPERVISOR providing the service under Physical Therapy direction. Initiate Physical Therapy intervention for pain management as needed, strengthening, bed mobility, transfers, gait, stairs, balance training, and use of assistive device. DISCHARGE RECOMMENDATIONS: Patient will benefit from home health PT services in order to progress mobility level using least restrictive assistive ambulatory device, assess home safety, identify additional equipment needs, and establish a functional maintenance program that will increase ability of patient to remain at home. TREATMENT CODE/TIME: 28978 x 30 minutes beginning at 13:40 PM.
[2020-11-24] MEDS: Benzonatate 100 MG CAP PO ×2 (13:44→20:27)
--- NOTE | 2020-11-24 14:53 | PUCON_ITS ---
General Date Of Service Date of service: 11/24/20 Time of Service: 09:30 Requesting physician: Emeli Jovel Assessment and Plan Assessment and plan (1) COPD with acute exacerbation: Status: Chronic Assessment and plan: This is a 75 yo female who is an active smoker admitted for COPD exacerbation. She has significant wheezing on exam still and still requiring oxygen (no home O2). I suspect a large portion of her dyspnea is related to her cough and anxiety, that being said her wheezing is still very significant. Antibiotic therapy is indicated for COPD exacerbations even without a clear sign of infection, so I would recommend adding this. She should be on a LAMA, which she is not currently. COPD Exacerbation - continue Symbicort 80-4.5 - rinse mouth after use - start Spiriva daily - recommend Duonebs q6hr standing and albuterol q2h prn - recommend azithromycin - recommend tessalon pearles - recommend prn low dose anxiolytic therapy - I will set her up to see me as an outpatient - smoking cessation History of Present Illness Narrative: This is a 75-year-old female who has never seen a partner integration planner who was admitted for a COPD exacerbation. She started feeling ill over 1 week ago specifically with a cough. She states that she begins coughing which makes her feel short of breath resulting in anxiety which worsens her breathing more so. She denies any symptoms that make me think she has a bacterial infection. Her cough is dry in nature. She is having shortness of breath. She is not having chest pain. Her chest x-ray showed nothing acute but there may be an interstitial process present. She had PFTs completed in 2011 that did not show obstructive disease, rather was more restrictive in nature.I do not see any chest CT's in our system. The eosinophil level was 0.17 on admission, no IgE. She is a current smoker. Consults Consult date: 11/23/20 Review of Systems All systems reviewed & are unremarkable except as noted in HPI and below PFSH Medical History Adenomatous colon polyp COPD with acute exacerbation Cystocele Depression GERD (gastroesophageal reflux disease) HTN (hypertension) Hypercholesterolemia Hyperlipidemia Hypokalemia Kidney stones Labial lesion Left flank pain Left leg pain Left leg paresthesias Obesity Osteopenia Prediabetes Recurrent UTI Smoker Vaginal atrophy Vaginal lesion Surgical History Cholecystectomy Colonoscopy - MAC (06/14/16) Vaginal hysterectomy Family History Father Colon cancer Social History Smoking/Tobacco Use Status: Former Tobacco Use Smoking risk assessment performed?: Yes Alcohol Intake: never Drug use: Never Substance use type: does not use Do you feel safe at home: Yes Do you feel safe in your relationship?: Yes Additional Social history: Not in a current relationship History History 1 Para 1 Hx # Term Pregnancies Multiple births Hx # Pregnancies Ectopic pregnancies AB induced Hx Number of Living Children AB spontaneous Visit Medication and Allergies Active Medications Generic Name Dose Route Start Last Admin Trade Name Freq PRN Reason Stop Dose Admin Amlodipine Besylate 10 mg 11/22/20 09:00 11/24/20 08:02 Amlodipine 5 Mg Tab PO 10 mg DAILY SALEEM Administration Aspirin 81 mg 11/22/20 09:00 11/24/20 08:02 Aspirin E.C. 81 Mg Tabec PO 81 mg DAILY SALEEM Administration Atorvastatin Calcium 40 mg 11/22/20 20:00 11/23/20 21:26 Atorvastatin 40 Mg Tab PO 40 mg QPM SALEEM Administration Azithromycin 500 mg 11/24/20 08:30 11/24/20 08:02 Azithromycin 250 Mg Tab PO 500 mg DAILY SALEEM Administration Benzonatate 100 mg 11/24/20 14:00 11/24/20 13:44 Benzonatate 100 Mg Cap PO 100 mg TID SALEEM Administration Budesonide/Formoterol Fumarate 2 puff 11/22/20 08:30 11/24/20 08:07 Budesonide/Formoterol 80/4.5 6.9 Gm 60 Puff Inh IH 2 puffs BID SALEEM Administration Dimethicone/Zinc Oxide 0 gm 11/22/20 08:26 [place] Protect Cream 142 Gm Tube TP PRN PRN Guaifenesin 600 mg 11/22/20 20:00 11/24/20 08:02 Guaifenesin 600 Mg Tabcr PO 600 mg BID SALEEM Administration Sodium Chloride 500 mls @ 0 mls/hr 11/22/20 08:26 Saline 500ml Bag IV PRN PRN As Directed IV Miscellaneous Supplies 1 each 10/06/21 08:30 Iv Access IV DIRECTED SALEEM Ipratropium [place] 0.5 mg 11/22/20 12:00 11/24/20 13:45 Ipratropium 0.5 Mg/2.5 Ml Upd Vial UPD 0.5 mg Q6H SALEEM Administration Levalbuterol HCl 1.25 mg 11/22/20 11:07 11/24/20 08:35 Levalbuterol 1.25 Mg/3 Ml Upd Vial UPD 1.25 mg Q4H PRN PRN Administration Lorazepam 0.5 mg 11/24/20 09:31 Lorazepam 0.5 Mg Tab PO TID PRN PRN Melatonin 3 mg 11/22/20 22:00 11/23/20 21:26 Melatonin 3 Mg Tab PO 3 mg HS SALEEM Administration Metoprolol Tartrate 12.5 mg 11/23/20 08:45 11/24/20 08:02 Metoprolol 12.5 Mg Tab PO 12.5 mg BID SALEEM Administration Nitroglycerin 0.4 mg 11/22/20 10:54 11/22/20 12:43 Nitroglycerin 0.4 Mg Tab SL 0.4 mg Q5 MIN PRN X3 PRN Administration Omeprazole 20 mg 11/22/20 08:36 11/24/20 06:30 Omeprazole 20 Mg Capcr PO 20 mg DAILY@0730 SALEEM Administration Potassium Chloride 20 meq 11/23/20 12:00 11/24/20 12:02 Potassium Chloride 20 Meq Tabcr PO 11/25/20 08:01 20 meq QMEALS SALEEM Administration Prednisone 40 mg 11/24/20 08:30 11/24/20 08:02 Prednisone 20 Mg Tab PO 40 mg DAILY SALEEM Administration Sodium Chloride 0 ml 11/22/20 08:26 11/23/20 17:06 Normal Saline Flush 10 Ml Syr IVP 10 ml PRN PRN Administration Tizanidine HCl 4 mg 11/22/20 08:30 11/22/20 19:36 Tizanidine 4 Mg Tablet PO 4 mg TID PRN PRN Administration Allergies nitrofurantoin [From Macrobid] Allergy (Severe, Verified 11/22/20 03:31) Iodinated Contrast Media [Iodinated Contrast- Oral and IV Dye] Allergy (Verified 11/22/20 03:31) Itching aspirin Adverse Reaction (Verified 11/22/20 03:31) Nausea nicotine [From Nicoderm CQ] Adverse Reaction (Verified 11/22/20 03:31) Itching Exam Const General: no acute distress Nutritional Appearance: well nourished [facility] Head: normocephalic Ears: external ears normal and no periauricular adenopathy General nose exam: nasal mucous membranes and turbinates normal Face and sinus: sinuses nontender Mouth: oropharynx normal and moist mucous membranes Teeth and gingiva: dentition normal Eyes General: appearance normal, both eyes and all related structures Pupils: PERRL Neck Neck: normal visual inspection and no lymphadenopathy Chest Chest: normal inspection of the chest Resp Effort & Inspection: normal respiratory effort Auscultation: no rales, no rhonchi and wheezes Cardio Rate: regular rate Rhythm: regular rhythm Heart Sounds: S1 normal, S2 normal and no murmurs Pulses: radial pulses present bilaterally GI Inspection: normal to inspection Palpation: soft Skin General skin exam: no rashes or lesions noted Neuro General: patient alert, patient awake and patient oriented x3 Extrem General: no clubbing, cyanosis or edema Psych Mental Status: mental status grossly normal Affect: normal affect Attitude: cooperative Results Last Vital Signs Temp 36.5 C 11/24/20 11:34 Pulse 70 11/24/20 11:34 Resp 22 11/24/20 11:34 BP 136/72 11/24/20 11:34 Pulse Ox 93 11/24/20 11:34 Labs Result diagrams: 11/23/20 09:01 11/23/20 09:01
--- NOTE | 2020-11-24 15:42 | W.PM.PROGNOT ---
Date of Service Date of service: 11/24/20 Time of Service: 12:00 Assessment and Plan Assessment and plan (1) COPD with acute exacerbation: Start date: 11/24/20 Start time: 12:00 Status: Chronic Assessment and plan: She did have severe anxiety with coughing fit overnight and this am, Ativan given, when I saw her she appeared calm, breathing relaxed not requiring oxygen, she maintained 92-93% on RA with ambulation Per Dr. Claros recommendations continue Symbicort 80-4.5 - rinse mouth after use - start Spiriva daily - recommend Duonebs q6hr standing and albuterol q2h prn - recommend azithromycin - recommend tessalon pearles - recommend prn low dose anxiolytic therapy She will see her an outpatient and discuss smoking cessation. (2) Elevated troponin: Start date: 11/24/20 Start time: 12:00 Status: Ruled-out Assessment and plan: cardiology evaluation, unlikely NSTEMI. When her acute illness has resolved, she could be considered for an ischemic evaluation, though regadenoson myocardial perfusion imaging would be relatively contraindicated given her COPD. That would necessitate either dobutamine stress test or coronary CTA. (3) Smoker: Start date: 11/24/20 Start time: 15:51 Status: Chronic Assessment and plan: On nicotine replacement at this time. discussed with Dr Ferrell Subjective Subjective Patient reports: feels better Interval history since last seen: Sitting up in chair. Appears to be calm and breathing easily, able to complete sentences, She states that she feels much better, she does have some wheezing and bilateral lower bases are tight, however breathing is improved from this morning. Exam Const General: cooperative, comfortable, no acute distress and ill appearing acutely Nutritional Appearance: obese Orientation: alert, awake and oriented x3 HENMT Head: normal to inspection, normocephalic and atraumatic Mouth: oral mucosae normal Neck Neck: normal visual inspection and no lymphadenopathy Thyroid: thyroid normal Resp Effort & Inspection: normal respiratory effort and able to speak in complete sentences Auscultation: no rales, rhonchi (tight bases bilaterally) and wheezes Cardio Jugular venous pressure: no JVD Rate: regular rate Rhythm: regular rhythm Heart Sounds: S1 normal, S2 normal, no gallops and no murmurs GI Inspection: normal to inspection Palpation: soft, no hepatosplenomegaly and nontender Auscultation: normal bowel sounds Skin General skin exam: no rashes or lesions noted Neuro General: patient alert, patient awake, patient oriented x3 and no focal motor deficits Cognition: normal cognition Speech: speech normal Extrem General: normal to inspection, full ROM, no pedal edema and no edema Objective Last Vital Signs Temp 36.5 C 11/24/20 11:34 Pulse 70 11/24/20 11:34 Resp 22 11/24/20 11:34 BP 136/72 11/24/20 11:34 Pulse Ox 93 11/24/20 11:34
[2020-11-24] MEDS: Atorvastatin 40 MG TAB PO (20:27)
[2020-11-24] MEDS: Melatonin 3 MG TAB PO (21:10)
[2020-11-25] VITALS (10 sets, daily range): BP systolic 159–186; BP diastolic 84–92; PULSE 66–88; RESP 2–16; TEMP 36.5–36.8; O2SAT 92–93
--- NOTE | 2020-11-25 | DI.RAD_ITS ---
Exam(s) XR CHEST 2V PA LATERAL EXAM: XR CHEST 2V PA LATERAL CLINICAL HISTORY: severe wheezing, worsening symptoms. TECHNIQUE: 2D digital imaging was performed. COMPARISON: CR,XR XR PORTABLE CHEST AP from 11/22/2020 FINDINGS: Heart size is normal. The mediastinum is not widened. No confluent infiltrates nor pleural effusions. No pneumothorax. No pulmonary edema. IMPRESSION: No obvious acute pulmonary findings.If clinically indicated follow-up chest CT scan can be performed. I note that this patient also had a chest x-ray 3 days ago. DATA REPOSITORY: RADIATION DOSE DELIVERED:
[2020-11-25] MEDS: Ipratropium 0.5 MG/2.5 ML UPD VIAL UPD ×5 (00:46→23:08)
[2020-11-25] MEDS: LORazepam 0.5 MG TAB PO ×2 (05:09→14:43)
[2020-11-25] MEDS: Omeprazole 20 MG CAPCR PO (06:40)
[2020-11-25] MEDS: Benzonatate 100 MG CAP PO ×3 (08:45→20:14)
[2020-11-25] MEDS: guaiFENesin 600 MG TABCR PO (08:45)
[2020-11-25] MEDS: Potassium Chloride 20 MEQ TABCR PO (08:45)
[2020-11-25] MEDS: Aspirin E.C. 81 MG TABEC PO (08:45)
[2020-11-25] MEDS: Azithromycin 250 MG TAB 500 MG PO (08:45)
[2020-11-25] MEDS: amLODIPine 5 MG TAB 10 MG PO (08:45)
[2020-11-25] MEDS: predniSONE 20 MG TAB 40 MG PO ×2 (08:45→20:14)
[2020-11-25] MEDS: Metoprolol 12.5 MG TAB PO ×2 (08:46→20:14)
[2020-11-25] MEDS: Tiotropium Bromide-Respimat 10 PUFF INH 2 PUFF IH (09:54)
[2020-11-25] MEDS: Budesonide/Formoterol 80/4.5 6.9 GM 60 PUFF INH IH ×2 (09:54→20:14)
[2020-11-25 10:00] LABS: Anion Gap 7.9 mmol/L (3-11); BUN 20 mg/dL (7-18); CO2 28.1 mmol/L (21.0-32.0); CREATININE 0.8 mg/dL (0.55-1.02); Chloride 104 mmol/L (98-107); Glucose 94 mg/dL (74-106); Potassium 4.3 mmol/L (3.5-5.1); Sodium 140 mmol/L (136-145)
[2020-11-25] MEDS: Albuterol/Ipratropium 3 ML UPD VIAL UPD (10:25)
--- NOTE | 2020-11-25 10:58 | PTTR_ITS ---
PT Notes Visit Reasons: copd exacerbation 11/25/2020 SUBJECTIVE: Feeling weak through the LE's. Has been coughing a lot which is making her exhausted. Has x-ray scheduled today. Agreeable to PT treatment. OBJECTIVE TRANSFERS Sit to stand: SBA Stand to sit: SBA GAIT Device: FWW Weight bearing: Full Assist: CGA Distance: 25'x2, 75'x2 Deviation: WC follow, short rest breaks between bouts of exercise, several instances where knees buckle, self recovery VITALS: 92% throughout, 70 b/m on RA ASSESSMENT: Fatigues quickly with short bouts of activity with obvious fatigue through the LE's. Complains of SOB throughout. Will benefit from continued physical therapy services to increase activity tolerance and functional mobili ty. PLAn: Continue current POC. Treatment time: ' 38870x0 Jasmine Deutsch PTA Clinic location: [facility] [place], [place]
[2020-11-25] MEDS: guaiFENesin/D-METHORPHAN HB 5 ML CUP PO ×2 (11:11→17:08)
--- NOTE | 2020-11-25 11:56 | DI.VRAD_ITS ---
PROCEDURE INFORMATION: Exam: XR Chest Exam date and time: 11/25/2020 9:48 AM Age: 75 years old Clinical indication: Cough and wheezing; Patient HX: SOB TECHNIQUE: Imaging protocol: XR of the chest. Views: 2 views. COMPARISON: CR XR PORTABLE CHEST AP 11/22/2020 4:26 AM FINDINGS: Lungs: Unremarkable. No consolidation. Pleural spaces: Unremarkable. No pleural effusion. No pneumothorax. Heart/Mediastinum: Unremarkable. No cardiomegaly. Bones/joints: Unremarkable. IMPRESSION: No acute findings. Dictated and Authenticated by: Tank Ledesma MD. Ordering:SHASHI Adamson MD
--- NOTE | 2020-11-25 11:57 | W.PM.PROGNOT ---
Date of Service Date of service: 11/25/20 Time of Service: 12:02 Assessment and Plan Assessment and plan (1) COPD with acute exacerbation: Start date: 11/25/20 Start time: 12:06 Status: Chronic Assessment and plan: Not requiring oxygen, however she does not look well. she appears SOB with audible wheezing and tight having coughing fit. Will order now updraft. ativan has been helpful, robitussin for cough as well, cxr negative for infectious process Will order home neb, discharge home possibly tomorrow, as she is feeling worse, today and not looking well. She does not have nebs at home. Per Dr. Claros recommendations continue Symbicort 80-4.5 - rinse mouth after use - start Spiriva daily - recommend Duonebs q6hr standing and albuterol q2h prn - recommend azithromycin - recommend tessalon pearles - recommend prn low dose anxiolytic therapy She will see her an outpatient and discuss smoking cessation. (2) Elevated troponin: Start date: 11/25/20 Start time: 12:09 Status: Ruled-out Assessment and plan: cardiology evaluation, unlikely NSTEMI. When her acute illness has resolved, she could be considered for an ischemic evaluation, though regadenoson myocardial perfusion imaging would be relatively contraindicated given her COPD. That would necessitate either dobutamine stress test or coronary CTA. (3) Smoker: Start date: 11/25/20 Start time: 12:09 Status: Chronic Assessment and plan: On nicotine replacement at this time. Needs to stop smoking will be addressed at Dr. Carranza appt. discussed with Dr Uribe Subjective Subjective Patient reports: shortness of breath Interval history since last seen: Having audible wheezing, coughing spell and not doing well. She is feeling worse today then yesterday. Per nursing the ativan is helping. CXR obtained to r/o any infectious process, negative. She appears worse today. Will order duoneb now. She does not have a nebulizer at home. She is not requiring oxygen will send prescription to [facility] for nebulizer for home and add robitussin to order. Would like to discharge tomorrow if she is able to get nebulizer from pharmacy. Exam Const General: cooperative, comfortable, no acute distress and ill appearing acutely Nutritional Appearance: obese Orientation: alert, awake and oriented x3 HENMT Head: normal to inspection, normocephalic and atraumatic Mouth: oral mucosae normal Neck Neck: normal visual inspection and no lymphadenopathy Thyroid: thyroid normal Resp Effort & Inspection: not able to speak in complete sentences Auscultation: no rales, rhonchi (tight bases bilaterally) and wheezes (audible) Cardio Jugular venous pressure: no JVD Rate: regular rate Rhythm: regular rhythm Heart Sounds: S1 normal, S2 normal, no gallops and no murmurs GI Inspection: normal to inspection Palpation: soft, no hepatosplenomegaly and nontender Auscultation: normal bowel sounds Skin General skin exam: no rashes or lesions noted Neuro General: patient alert, patient awake, patient oriented x3 and no focal motor deficits Cognition: normal cognition Speech: speech normal Extrem General: normal to inspection, full ROM, no pedal edema and no edema Objective Last Vital Signs Temp 36.5 C 11/24/20 23:50 Pulse 73 11/24/20 23:50 Resp 14 11/25/20 01:16 BP 132/74 11/24/20 23:50 Pulse Ox 93 11/24/20 23:50 Laboratory Results - last 24 hr 11/25/20 09:20 Sodium 140 Potassium 4.3 D Chloride 104 Carbon Dioxide 28.1 Anion Gap 7.9 BUN 20 H Creatinine 0.8 Estimated GFR/1.73 m2 >= 60.00 Glucose 94 Calcium 9.0 Magnesium 2.0
[2020-11-25] MEDS: Atorvastatin 40 MG TAB PO (20:14)
[2020-11-25] MEDS: Melatonin 3 MG TAB PO (22:37)
[2020-11-25] MEDS: Normal Saline Flush 10 ML SYR IVP (22:37)
[2020-11-26 05:17] VITALS: BP 187/102; PULSE 70; RESP 16; TEMP 35.6; O2SAT 92
[2020-11-26] MEDS: Ipratropium 0.5 MG/2.5 ML UPD VIAL UPD ×2 (05:17→13:06)
[2020-11-26 05:24] VITALS: BP 158/90
[2020-11-26] MEDS: Omeprazole 20 MG CAPCR PO (06:31)
[2020-11-26 07:50] VITALS: BP 184/100; PULSE 66; RESP 18; TEMP 36.6; O2SAT 93
[2020-11-26] MEDS: Benzonatate 100 MG CAP PO (07:51)
[2020-11-26] MEDS: Aspirin E.C. 81 MG TABEC PO (07:53)
[2020-11-26] MEDS: predniSONE 20 MG TAB 40 MG PO (07:53)
[2020-11-26] MEDS: Metoprolol 12.5 MG TAB PO (07:53)
[2020-11-26] MEDS: Azithromycin 250 MG TAB 500 MG PO (07:53)
[2020-11-26] MEDS: amLODIPine 5 MG TAB 10 MG PO (07:57)
[2020-11-26] MEDS: Tiotropium Bromide-Respimat 10 PUFF INH 2 PUFF IH (08:10)
[2020-11-26] MEDS: Budesonide/Formoterol 80/4.5 6.9 GM 60 PUFF INH IH (08:10)
--- NOTE | 2020-11-26 09:00 | NT_ITS ---
PT Notes Visit Reasons: copd exacerbation 11/26/2020 Pt states she is going home today and would like to hold on PT. She is up moving around her room independently this AM. 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
--- NOTE | 2020-11-26 09:37 | DSE_ITS ---
Date of service: 11/26/20 Time of Service: 09:37 DS: Diagnosis Discharge Diagnosis (1) COPD with acute exacerbation: Start date: 11/26/20 Start time: 09:37 Status: Chronic Asessment and Plan: Not requiring oxygen, looks well, wants to go home. Ordered nebulizers for home. Will follow Dr. dumont orders for outpatient as well continue Symbicort 80-4.5 - rinse mouth after use - start Spiriva daily - recommend Duonebs q6hr standing and albuterol q2h prn - recommend azithromycin (will need 2 more days worth) - recommend tessalon pearles - recommend prn low dose anxiolytic therapy She will see her an outpatient and discuss smoking cessation. Follow up with Dr. Claros as scheduled. STOP SMOKING (2) Elevated troponin: Start date: 11/26/20 Start time: 09:41 Status: Ruled-out Asessment and Plan: She has elevated trops on admission, r/o for ischemia, NSTEMI When her acute illness has resolved, she could be considered for an ischemic evaluation, though regadenoson myocardial perfusion imaging would be relatively contraindicated given her COPD. That would necessitate either dobutamine stress test or coronary CTA. (3) Smoker: Start date: 11/26/20 Start time: 09:42 Status: Chronic Asessment and Plan: On nicotine replacement while in the hospital, Needs to stop smoking will be addressed at Dr. Hendricks appt. discussed with Dr. Uribe Discharge Plan Disposition Patient Disposition: HOME W/HOME HEALTH SERVICE Condition: Improving Discharge Details Reason For Visit: copd exacerbation Admit Date/Time: 11/24/20 09:40 Admit Provider: Joe Cárdenas Attending Provider: Joe Cárdenas Primary Care Provider: [facility] Course Hospital Course: 75 y.o female admitted with COPD exacerbation presetned with SOB and increased cough after 5 days. On admission she was had no white count. Potassium was low repleted with PO and normalized. She was seen by Dr. Claros and recommendations were made, will follow recommendations as above in diagnosis. She did have coughing fits that caused her to have tightness and wheezing, she was placed on ativan that was helpful, tessalon pearles and robitussin. She does not have a nebulizer at home, script sent yesterday and she feels better today asking to go home and she is being discharged home. Seen by cardiology r/o for NSTEMI. See dx for outpatient recommendation. PT recommends HH PT. Home Meds and New Rx's Prescriptions: New atorvastatin 40 mg Tablet 40 mg PO QPM Qty: 30 RF: 0 budesonide-formoterol [Symbicort] 80-4.5 mcg/actuation Hfa Aerosol Inhaler 2 puff inhalation BID Qty: 1 RF: 0 azithromycin 250 mg Tablet 500 mg PO DAILY 2 Days Qty: 4 RF: 0 benzonatate 100 mg Capsule 100 mg PO TID Qty: 90 RF: 0 dextromethorphan-guaifenesin 10-100 mg/5 mL Syrup 5 ml PO Q6H PRN PRNQty: 500 RF: 0 lorazepam 0.5 mg Tablet 0.5 mg PO TID PRN PRNQty: 30 RF: 0 Spiriva Respimat 2.5 mcg/actuation Mist 2 puff inhalation DAILY Qty: 4 RF: 0 metoprolol succinate 25 mg tablet extended release 24 hr 25 mg PO DAILY Qty: 30 RF: 0 Continued omeprazole 10 MG capsule,delayed release(DR/EC) 20 mg PO DAILY RF: 0 melatonin 3 MG tablet,disintegrating 20 mg PO HS RF: 0 Advair HFA 115-21 mcg/actuation HFA aerosol inhaler 1 puff IH BID RF: 0 albuterol sulfate [ProAir HFA] 90 mcg/actuation HFA aerosol inhaler 2 puff IH Q6H PRNRF: 0 tizanidine 4 mg capsule 4 mg PO TID PRNRF: 0 amlodipine [Norvasc] 5 mg tablet 10 mg PO DAILY RF: 0 aspirin [Aspir-81] 81 MG tablet,delayed release (DR/EC) 81 mg PO DAILY RF: 0 lovastatin 20 MG tablet 20 mg PO DAILY RF: 0 losartan-hydrochlorothiazide 100-25 mg tablet 1 tab PO DAILY RF: 0 Discharge Instructions Instructions: COPD (Chronic Obstructive Pulmonary Disease) (DC), How Your Lungs Work (DC), Chronic Lung Disease and Infection Prevention (DC) Additional Instructions: Follow up with Dr. Claros as scheduled STOP Smoking Use nebulizer every 2-4 hours as needed for wheezing and Shortness of breath Continue azithromycin for 2 more days. Follow up with your PCP in 1 week You should have an outpatient cardiology work up when feeling better Activity:: Activity as Tolerated Equipment/Supplies:: nebulizer Diet:: Low Sodium Discharge Orders Discharge Orders: Discharge Order (Routine); Ordered 11/26/20 Ordered By: Snow Perez DS: Summary Time Spent with Patient providing and/or coordinating discharge services: Greater than 30 minutes Status at Discharge Functional status at discharge: uses cane/walker Overall status at discharge: patient is progressing back to baseline Mental Status: mental status grossly normal Speech and Movement: speech and movement normal Mood: congruent mood Affect: normal affect Exam Const General: cooperative, comfortable, no acute distress and ill appearing acutely Nutritional Appearance: obese Orientation: alert, awake and oriented x3 HENMT Head: normal to inspection, normocephalic and atraumatic Mouth: oral mucosae normal Neck Neck: normal visual inspection and no lymphadenopathy Thyroid: thyroid normal Resp Effort & Inspection: normal respiratory effort and able to speak in complete sentences Auscultation: wheezes scattered wheezes Other: Overall breathing is improved Cardio Jugular venous pressure: no JVD Rate: regular rate Rhythm: regular rhythm Heart Sounds: S1 normal, S2 normal, no gallops and no murmurs GI Inspection: normal to inspection Palpation: soft, no hepatosplenomegaly and nontender Auscultation: normal bowel sounds Skin General skin exam: no rashes or lesions noted Neuro General: patient alert, patient awake, patient oriented x3 and no focal motor deficits Cognition: normal cognition Speech: speech normal Extrem General: normal to inspection, full ROM, no pedal edema and no edema Psych Mental Status: mental status grossly normal Speech and Movement: speech and movement normal Mood: congruent mood Affect: normal affect DS: Data Vitals/I&O Vitals and I&O: Vital Signs Temperature 36.6 C 11/26/20 07:50 Temperature Source Tympanic 11/26/20 07:50 Pulse 66 11/26/20 07:50 Pulse Rhythm Regular 11/25/20 15:00 Pulse 85 11/22/20 05:30 Respiratory Rate 18 11/26/20 07:50 Respiratory Effort Non-Labored 11/26/20 03:59 Respiratory Depth Normal 11/26/20 03:59 Respiratory Pattern Normal 11/26/20 03:59 Blood Pressure 184/100 H 11/26/20 07:50 Blood Pressure Mean 82 11/22/20 05:30 Blood Pressure Position Sitting 11/22/20 03:25 Pulse Oximetry 93 11/26/20 07:50 Oxygen Delivery Method Room Air 11/26/20 07:50 Oxygen Flow Rate 0 11/26/20 07:50 Pain Level 0 11/26/20 07:50 Comment 11/26/20 05:17 Intake & Output 11/25/20 11/25/20 11/26/20 11:59 23:59 11:59 Intake Total 580 / 580 Balance 580 / 580 Intake: IV Oral 570 / 570 Other: Urine Color Yellow Urine Appearance Clear Clear Clear Comment voids independent in toilet pT voided independent in toilet Voiding Methods Toilet Toilet Data Completed and Pending Completed studies during hospitalization [Text1]: Exam(s) XR PORTABLE CHEST AP EXAM: XR PORTABLE CHEST AP CLINICAL HISTORY: sob, cough, fever TECHNIQUE: 2D digital imaging was performed of the chest. One image was obtained. An AP view was obtained. COMPARISON: CR XR CHEST 2V PA LATERAL from 05/12/2018 CR XR CHEST 2V PA LATERAL from 05/12/2018 FINDINGS: MEDIASTINUM: Normal. HEART: Normal. PULMONARY VASCULATURE: Normal. LUNGS: Clear. PLEURAL SPACE: No pleural effusion or pneumothorax. BONE:Within normal limits for the patient's age. OTHER FINDINGS:Normal. IMPRESSION: No acute pulmonary findings. Exam(s) PROCEDURE INFORMATION: Exam: XR Chest Exam date and time: 11/22/2020 3:30 AM Age: 75 years old Clinical indication: Other: SOB, cough, fever TECHNIQUE: Imaging protocol: XR of the chest. Views: 1 view. COMPARISON: CR XR CHEST 2V PA LATERAL 05/12/2018 3:00 PM FINDINGS: Lungs: Mild chronic interstitial prominence. No consolidation. Pleural spaces: No pleural effusion. No pneumothorax. Heart/Mediastinum: No cardiomegaly. Bones/joints: Grossly stable. IMPRESSION: No acute findings. No radiographic evidence for pneumonia Exam(s) XR CHEST 2V PA LATERAL EXAM: XR CHEST 2V PA LATERAL CLINICAL HISTORY: severe wheezing, worsening symptoms. TECHNIQUE: 2D digital imaging was performed. COMPARISON: CR,XR XR PORTABLE CHEST AP from 11/22/2020 FINDINGS: Heart size is normal. The mediastinum is not widened. No confluent infiltrates nor pleural effusions. No pneumothorax. No pulmonary edema. IMPRESSION: No obvious acute pulmonary findings.If clinically indicated follow-up chest CT scan can be performed. I note that this patient also had a chest x-ray 3 days ago. Exam(s) PROCEDURE INFORMATION: Exam: XR Chest Exam date and time: 11/25/2020 9:48 AM Age: 75 years old Clinical indication: Cough and wheezing; Patient HX: SOB TECHNIQUE: Imaging protocol: XR of the chest. Views: 2 views. COMPARISON: CR XR PORTABLE CHEST AP 11/22/2020 4:26 AM FINDINGS: Lungs: Unremarkable. No consolidation. Pleural spaces: Unremarkable. No pleural effusion. No pneumothorax. Heart/Mediastinum: Unremarkable. No cardiomegaly. Bones/joints: Unremarkable. IMPRESSION: No acute findings. Labs on day of discharge: Labs from last 24 hours 11/25/20 09:20 Sodium 140 Potassium 4.3 D Chloride 104 Carbon Dioxide 28.1 Anion Gap 7.9 BUN 20 H Creatinine 0.8 Estimated GFR/1.73 m2 >= 60.00 Glucose 94 Calcium 9.0 Magnesium 2.0 PFSH Medical History Adenomatous colon polyp COPD with acute exacerbation Cystocele Depression GERD (gastroesophageal reflux disease) HTN (hypertension) Hypercholesterolemia Hyperlipidemia Hypokalemia Kidney stones Labial lesion Left flank pain Left leg pain Left leg paresthesias Obesity Osteopenia Prediabetes Recurrent UTI Smoker Vaginal atrophy Vaginal lesion Surgical History Cholecystectomy Colonoscopy - MAC (06/14/16) Vaginal hysterectomy Family History Father Colon cancer Social History Smoking/Tobacco Use Status: Former Tobacco Use Smoking risk assessment performed?: Yes Alcohol Intake: never Drug use: Never Substance use type: does not use Do you feel safe at home: Yes Do you feel safe in your relationship?: Yes Additional Social history: Not in a current relationship History History 1 Para 1 Hx # Term Pregnancies Multiple births Hx # Pregnancies Ectopic pregnancies AB induced Hx Number of Living Children AB spontaneous
--- NOTE | 2020-11-26 10:12 | PDOC.HHF2F ---
Home Health Certification Home Health Certification: 1. Encounter Date and Reason I certify that Candis Davalos was seen by Snow Perez on 11/26/20 and that I had a [id number] encounter with this patient that meets the physician face to face encounter requirements. 2. Clinical Findings Supporting Skilled Need and Homebound Status I certify that home health services are medically necessary, include either intermittent residential and/or physical/speech therapy, and that this patient is homebound in that absences from the home require considerable and taxing effort and are infrequent or of short duration, or are attributable to the need to receive medical care. [X] (a) Attached documentation from encounter provides clinical findings supporting skilled need and homebound status (including what assistance patient requires to leave the home). The encounter with the patient was in whole, or in part, for the following medical condition, which is the primary reason for home health care: copd exacerbation Physical Therapy: Patient would benefit from PT for strength and balance and gait. Homebound: Unable to leave home without assistance. 3. Certification and Authentication I certify that I composed the above information based on my clinical judgement relating to this patient's medical condition and, if applicable, clinical findings communicated to me by the NPP or inpatient physician who performed the Home Health Referral. All further orders will be obtained through _Mitzi Parham (Community Based Physician - PCP)
--- NOTE | 2020-11-26 10:54 | PDOC.CMDIS ---
- If Service Date Differs Date of service: 11/26/20 Time of Service: 10:54 LACE Index Scoring Tool - Questions: Length of Stay (in days): 4 - 6 Acuity (Admit via E.D.?): Yes Comorbidities: Chronic Pulmonary Disease E.D. Visits: 1 - Answers: Total Score: 10 Risk of Readmission: High Risk Care Management Discharge Reason for Hospitalization: COPD with exacerbation, Elevated troponin Discharge Plan: Candis will be discharged home with new PT when medically cleared by provider. She will follow up with her PCP, pulmonology and discharge plan of care as directed. Her sister will drive her home via private vehicle when ready. Patient/Family Education Needs: Review discharge instructions, discuss Ask Me Three. Services Needed at Discharge: Home Health Care Services (PT )
[2020-11-26 11:24] LABS: Bilirubin Negative (Negative); Blood Small (Negative); Clarity Sl Cloudy (Clear); Glucose Negative (Negative); Ketones Negative (Negative); Leukocyte Esterase Small (Negative); Nitrite Negative (Negative); Urobilinogen 0.2 EU/dL (Up TO 0.2)
[2020-11-26 11:30] LABS: Bacteria Few HPF (Negative); C & S Indicated? Yes; Casts Negative LPF (Negative); Crystals Negative HPF (Negative); Epithelial Cells Few HPF (Negative); Mucus Moderate (Negative); Other Cells Rare Renal (Negative)
[2020-11-26 13:06] VITALS: RESP 4
[2020-11-26] MEDS: Cephalexin 250 MG CAP 750 MG PO (13:09)
--- NOTE | 2020-11-27 17:10 | INDS_ITS ---
Date of service: 11/27/20 PT Notes Visit Reasons: copd exacerbation Physical Therapy Inpatient Discharge Summary Date: 11/27/2020 Date of service: 11/24/2020 through 11/25/2020 This is a clinical summary of care provided for the duration of dates listed above. No charge was made in the completion of this documentation. Referring Doctor: Ariane Ferrell MD PT Orders: PT CONSULT: Limited ability Precautions: Fall. Standard. Activity as tolerated. Patient Profile/Admitting Diagnosis: Shannan fritz is a 75-year-old female who presented to the ED on 11/22/2020 with shortness of breath increasing cough. Patient is diagnosed with COPD exacerbation and elevated troponin. PMHX: Medical History (Updated 11/22/20 @ 08:55 by Joe Cárdenas MD) Adenomatous colon polyp COPD with acute exacerbation Cystocele Depression GERD (gastroesophageal reflux disease) HTN (hypertension) Hypercholesterolemia Hyperlipidemia Hypokalemia Kidney stones Labial lesion Left flank pain Left leg pain Left leg paresthesias Obesity Osteopenia Prediabetes Recurrent UTI Smoker Vaginal atrophy Vaginal lesion Surgical History Cholecystectomy Colonoscopy - MAC (06/14/16) Vaginal hysterectomy Social History/Home Situation: Lives alone in a private home with 7 steps to enter with rails on both sides. Has a dog. Has a sister who lives close by and can be a good support as needed. Independent with PLOF. Did not use any assistive device. Has had no falls in the past year. Equipment Owned/DME: None Subjective: NT. See most recent CIGARETTE LIGHTER REPAIRER notes. Objective: General Observation: NT. See most recent CIGARETTE LIGHTER REPAIRER notes. Mental Status: NT. See most recent CIGARETTE LIGHTER REPAIRER notes. Pain: NT. See most recent CIGARETTE LIGHTER REPAIRER notes. Vital Signs: NT. See most recent CIGARETTE LIGHTER REPAIRER notes. ROM: Right Upper Extremity: Shoulder Flexion WFL. Shoulder abduction WFL. Elbow flexion WFL. Wrist flexion WFL. Functional opening and closing of hand WFL. Left Upper Extremity: Shoulder Flexion WFL. Shoulder abduction WFL. Elbow flexion WFL. Wrist flexion WFL. Functional opening and closing of hand WFL. Right Lower Extremity: Hip flexion WFL. Hip abduction WFL. Knee flexion WFL. Ankle dorsiflexion WFL. Ankle plantarflexion WFL. Left Lower Extremity: Hip flexion WFL. Hip abduction WFL. Knee flexion WFL. Ankle dorsiflexion WFL. Ankle plantarflexion WFL. Strength: Right Upper Extremity: Shoulder flexors 4/5. Shoulder abductors 4/5. Elbow flexors 4/5. Elbow extensors 4/5. [employer] Aide Teacher strong. Left Upper Extremity: Shoulder flexors 4/5. Shoulder abductors 4/5. Elbow flexors 4/5. Elbow extensors 4/5. [employer] Aide Teacher strong. Right Lower Extremity: Hip flexors 4-/5. Hip abductors 4-/5. Knee flexors 4-/5. Knee extensors 3+/5. Ankle dorsiflexors 4-/5. Ankle plantarflexors 4-/5. Left Lower Extremity: Hip flexors 4-/5. Hip abductors 4-/5. Knee flexors 4-/5. Knee extensors 3+/5. Ankle dorsiflexors 4-/5. Ankle plantarflexors 4-/5. Bed Mobility/Transfers: Sit to stand standby assist Stand to sit standby assist Gait: Instructed patient with level surface ambulation of 75 feet + 75 feet requiring contact-guard assist. Feli decreased. B knees has a tendency to give way but did not have LOB throughout activity. Moderate shortness of breath reported. Balance: Static Sitting: Normal Dynamic Sitting: Normal Static Standing: Fair Dynamic Standing: Fair Assessment: Patient presents with clinical signs and symptoms consistent with current/admitting diagnoses that have resulted to mobility limitations, gait instability, generalized weakness, and overall ADL decline as demonstrated by the following impairment level findings: 1. Decreased strength to BLE major muscle groups 2. Impaired standing balance 3. Impaired activity tolerance 4. Moderate shortness of breath Impairments are contributing to the following functional limitations: 1. Decline in bed mobility skills 2. Decline in transfer skills 3. Difficulty with ambulation without assistive device and physical assistance 4. Increased completion time for mobility ADL performance 5. Increased risk for falls 6. Difficulty with managing steps alone safely Goals: Goals X1 week 1. Supine-Sit independent NOT MET 2. Sit-Supine independent NOT MET 3. Sit-Stand independent NOT MET 4. Stand-Sit independent with FWW NOT MET 5. Bed-Chair independent with FWW NOT MET 6. Chair-Bed independent with FWW NOT MET 7. Independent gait on level surface with use of FWW for at least 300 feet without report of pain nor dyspnea NOT MET 8. Independent stair negotiation while holding onto B rails for at least 10 steps without report of pain nor dyspnea NOT MET 9. Independent with home exercise program NOT MET 10. Good static and dynamic standing balance/tolerance NOT MET DISCHARGE RECOMMENDATIONS: Patient will benefit from home health PT services in order to progress mobility level using least restrictive assistive ambulatory device, assess home safety, identify additional equipment needs, and establish a functional maintenance program that will increase ability of patient to remain at home. TREATMENT CODE/TIME: [place] Thank you for the opportunity to participate in the care of this patient. Geni Hernandez PT, DPT, CLT [facility] [place], [place]
== END 2020-11-26 13:13 | disposition home health service (06) | DRG 192 ==
LOC: ER 05:41 → MS 06:09
PROVIDERS: Family Medicine; Internal Medicine; Nurse Practitioner Acute Care; Nurse Practitioner Family; Admitting Provider Family Medicine; Emergency Provider Student in an Organized Health Care Education/Training Program; PCP Nurse Practitioner Family; Visit Provider Family Medicine
DX: J44.1 Chronic obstructive pulmonary disease with (acute) exacerbation (principal); F17.210 Nicotine dependence, cigarettes, uncomplicated; R74.8 Abnormal levels of other serum enzymes; K21.9 Gastro-esophageal reflux disease without esophagitis; I10 Essential (primary) hypertension; E78.00 Pure hypercholesterolemia, unspecified; E78.5 Hyperlipidemia, unspecified; E87.6 Hypokalemia; E66.9 Obesity, unspecified; R73.03 Prediabetes; M85.80 Other specified disorders of bone density and structure, unspecified site; Z87.440 Personal history of urinary (tract) infections; F32.A Depression, unspecified; Z20.822 Contact with and (suspected) exposure to COVID-19
CPT/HCPCS: 36415; 80048; 80053; 80061; 82805; 87077; 87449; 87635; 93005; 94640; 96360; 97162; 97530; 99222; 99285; J1650; 71045; 71046; 81003; 81015; 83036; 83735; 83880; 84484; 85025; 85730; 87086; 87186; 93010; 93306; 99219; 99225; 99232; 99239; J1941; J2930; J3490; J7512; J7614; J7620; J7644

== ENCOUNTER → 2020-11-23 11:34 | Outpatient (BNVA) | payer OTHER, MEDICAID, SELFPAY | PROVIDERS: PCP Nurse Practitioner Family; Referring Provider Nurse Practitioner Family; Visit Provider Internal Medicine Cardiovascular Disease | DX: R69 Illness, unspecified (principal) ==

== ENCOUNTER 2020-12-20 01:09 | Outpatient (CLI) | payer MEDICARE, MEDICAID, SELFPAY ==
--- NOTE | 2020-12-20 07:15 | DI.CTLCSR_ITS ---
Exam(s) CT CHEST LUNG CANCER SCREEN EXAM: CT CHEST LUNG CANCER SCREEN CLINICAL HISTORY: Screening for lung cancer,FORMER SMOKER, [id number]. TECHNIQUE: Imaging Protocol: Low Dose Technique CONTRAST MATERIAL: None COMPARISON: CT CHEST WITH CONTRAST from 09/19/2014 CT CHEST WITH CONTRAST from 09/19/2014 CT CHEST - LUNG CANCER SCREENING from 10/19/2015 CR,XR XR PORTABLE CHEST AP from 11/22/2020 CR,XR XR PORTABLE CHEST AP from 11/22/2020 CR,XR XR CHEST 2V PA LATERAL from 11/25/2020 FINDINGS: CHEST: LUNGS: There is a 5 x 4 millimeter noncalcified spiculated nodule in the right middle lobe which appe ars slightly more prominent than on the study of 2016. There is also a small 4 millimeter nodule in the right lower lobe just above the hemidiaphragm, not previously present. No other right lung findi ngs nor. Mild benign-appearing increased markings-probable scarring in the lateral basal segment of the left lower lobe noted. There are no pleural effusions on either side. No focal findings in trac hea and mainstem bronchi. MEDIASTINUM: There is no obvious hilar nor mediastinal adenopathy. CARDIAC: Heart size is normal. There is no pericardial effusion.Moderate coronary artery calcificati on is noted.. Caliber thoracic aorta is within normal limits. OTHER: No obvious adrenal masses. Gallbladder surgically absent. OSSEOUS: No significant osseous lesions.. IMPRESSION: 1. There is a 5 x 4 millimeter spiculated nodule in the right middle lobe which was present in 2014 but appears to have slightly increased in size by approximately 1-2 millimeters. Recommend f ollow-up CT scan in 6 months 2. No pleural effusions. No adenopathy. 3. Lung RADS Cat 3 - Probably Benign: Probably benign finding(s) - short term follow-up suggested; in clude nodules with a low likelihood of becoming a clinically active cancer. Lung-RADS 1.0 CATEGORIES: Category 0 - Prior chest CT exam(s) being located for comparison. Category 1 - Annual screening in 12 months. No nodules or definitely benign nodules. Category 2 - Annual screening in 12 months. Benign appearance. Nodules with low likelihood of becomin g active cancer. Category 3 - 6-month follow-up. Probably benign. Short-term follow-up suggested. Nodules with low lik elihood of becoming active cancer. Category 4A - 3-month follow-up and CT/PET if >8 mm in size. Suspicious finding. Findings which requi re additional testing. Category 4B - Findings which require additional testing and tissue sampling. Modifier S- Potentially clinically significant findings (non lung cancer) RADIATION DOSE DELIVERED: 77.9mGy.cm Total DLP 1.84mGy CTDIvol DATA REPOSITORY: All CT scans at this facility are submitted to the National Radiology Data Registry (NRDR) Dose Index Registry (DIR) with the [employer] (A[employer]). RADIATION OPTIMIZATION: All CT scans at this facility use at least one of these dose optimization te chniques: automated exposure control; mA and/or kV adjustment per patient size (includes targeted exa ms where dose is matched to clinical indication); or iterative reconstruction.
== END 2020-12-20 01:29 ==
PROVIDERS: PCP Family Medicine; Visit Provider Student in an Organized Health Care Education/Training Program
DX: Z87.891 Personal history of nicotine dependence (principal); Z12.2 Encounter for screening for malignant neoplasm of respiratory organs; R91.8 Other nonspecific abnormal finding of lung field; R91.1 Solitary pulmonary nodule
CPT/HCPCS: 71271

== ENCOUNTER 2020-12-25 20:21 | Outpatient (REF) | payer MEDICARE, MEDICAID, SELFPAY | END 2020-12-25 20:22 | disposition home or self-care (01) | LOC: NCHCN 20:21 | PROVIDERS: PCP Family Medicine; Visit Provider Family Medicine | DX: N39.0 Urinary tract infection, site not specified (principal) | CPT/HCPCS: 87077; 87086; 87186 ==